=== PATIENT | male | born 1970 | race Caucasian/White ===

== ENCOUNTER 2019-03-06 18:26 | Inpatient (IN) | payer SELFPAY ==
[~2019-03-06 18:26] MED LIST: Iopamidol-370 76% 500 ML 1 ML ONE
[2019-03-06] MEDS ORDERED: Morphine 4 MG/ML VIAL ONE ×2 (18:55→19:47)
[2019-03-06] MEDS ORDERED: Ondansetron PF 4 MG/2 ML Vial ONE ×2 (18:56→19:22)
[2019-03-06] MEDS ORDERED: Clindamycin/D5W 900 mg/50 ml Premix Bag ONE (18:56)
[2019-03-06 19:08] LABS: Hemoglobin 10.9 g/dL (14.0-18.0); Mean Corpuscular HGB CONC 31.2 g/dL (32.0-36.0); Mean Corpuscular Hemoglobin 25.7 pg (27.0-31.0); Mean Corpuscular Volume 82.5 fL (78.0-98.0); Mean Platelet Volume 6.8 fL (7.4-10.4); Platelet Count 514 thou/uL (130-400); RBC Distribution Width 14.8 % (11.5-14.5); Red Blood Cell (RBC) Count 4.26 mill/uL (4.70-6.10); White Blood Cell (WBC) Count 12.6 thou/uL (4.8-10.8)
[2019-03-06 19:22] LABS: Bilirubin Negative (Negative); Blood, Urine Negative (Negative); Clarity Clear (Clear); Glucose, Urine (Dipstick) Normal (Negative); Leukocyte Negative Leu/uL (Negative); Nitrite Negative (Negative); Protein, Urine (Dipstick) Negative (Neg-Trace); Urobilinogen Normal mg/dL (Less than 2)
[2019-03-06 19:28] LABS: Eosinophils 1 % (0-10); Hypochromia SLIGHT = 6-15 cells (100X) (0-5/hpf); Lymphocytes 12 % (21-51); MDiff Complete? YES; Monocytes 4 % (0-10); Neutrophil 77 % (42-75); Platelet Morphology Comment Appears Increased; Polychromasia SLIGHT = 2-3 cells (100X) (0-2/hpf); Reactive Lymphocytes 6 % (0-10); Target Cells SLIGHT = 2-5 cells (100X) (0-1/hpf)
[2019-03-06 19:33] LABS: ALT (SGPT) 8 U/L (8-55); AST (SGOT) 11 U/L (5-34); Albumin 3.6 g/dL (3.5-5.0); Alkaline Phosphatase 70 U/L (40-110); Anion Gap 14 mmol/L (10-20); BUN (Urea Nitrogen) 10 mg/dL (8.9-20.6); Bilirubin, Total 0.3 mg/dL (0.2-1.2); Calc. Creatinine Clearance 0 mL/min (70-130); Calcium 9.1 mg/dL (7.8-10.44); Carbon Dioxide 28 mmol/L (22-29); Chloride 101 mmol/L (98-107); Estimated GFR-MDRD Greater than 90; Globulin 3.6 g/dL (2.4-3.5); Glucose 97 mg/dL (70-105); Potassium 3.8 mmol/L (3.5-5.1); Protein, Total 7.2 g/dL (6.0-8.3); Sodium 139 mmol/L (136-145)
--- NOTE | 2019-03-06 20:33 | CT ---
CT OF RIGHT LEG WITH IV CONTRAST: 03/06/19 HISTORY: 48-year-old male with right leg pain. Patient reports removal of three blood clots and stent placemen t in [place] and removal of patches of skin. Patient represents for evaluation of drainage from woun d to the right ankle. FINDINGS/IMPRESSION: There is soft tissue swelling in the right leg with edema in the subcutaneous fat. An open skin wound /defect is noted in the inferior aspect of the leg. No definite loculated fluid collection is seen to suggest abscess formation. There is periosteal reaction involving the mid-distal aspect of the fibul a. Possibility of osteomyelitis should be considered. POS: OFF
--- NOTE | 2019-03-06 21:18 | PDOC.FPRHP ---
- History of Present Illness Chief Complaint: RLE pain, nausea History of Present Illness: Mr. Goodson is a 48yo male who presented to the ED for worsening RLE pain. 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 He is a poor historian and was very agitated during the encounter. From what was gathered, the wound has been present since May 2018. It has significantly worsened in the last 1.5 months, to the point that today he began having significant increasing pain, and tonight he couldn't take it anymore. He is still walking on the leg. He has had associated nausea, sweats and chills. He has had orthopnea and PND, he wakes at night and smokes to relieve his symptoms. He states that this problem began in February of 2018 with 3 blood clots in that leg that were surgically removed and a stent was placed. He states that he had a post-operative infection at that time and some skin was removed. That was done in [place], [place]. ED Course: 1L NS, Zofran 8mg, Morphine 16mg, Vanc and Meropenem - Allergies/Adverse Reactions Allergies Allergy/AdvReac Type Severity Reaction Status Date / Time Penicillins Allergy Verified 03/06/19 23:32 - Home Medications Medication Instructions Recorded Confirmed Type Carvedilol [Coreg] 25 mg PO BID 03/06/19 03/06/19 History Chlorthalidone [Hygroton] 25 mg PO DAILY 03/06/19 03/06/19 History - History PMHx: Peripheral vascular disease HTN PSHx: 02/2018 - removed 3 blood clots and placed stent. Complicated by post-op infection. 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 Smokes 1 ppd Drinks 2/day No illicit drugs - Review of Systems General: reports: fever/chills. denies: weight/appetite/sleep changes, night sweats, fatigue Eyes: denies: eye pain, vision changes ENT: denies: nasal congestion, rhinorrhea Respiratory: denies: cough, congestion, shortness of breath Cardiovascular: denies: chest pain, palpitation, edema, paroxysmal nocturnal dyspnea Gastrointestinal: reports: nausea, vomiting. denies: diarrhea, constipation, abdominal pain Genitourinary: denies: incontinence, dysuria, polyuria Skin: reports: lesions. denies: rashes, jaundice Musculoskeletal: reports: pain, tenderness. denies: stiffness, swelling Neurological: denies: numbness, seizure, weakness Psychological: denies: anxiety, depression - Vital signs BP: 186/109, MAP: 134, Pulse: 102, Resp: 15, Temp: 99.2 (Oral), Pain: 6, O2 sat : 96 on (3L Oxygen), Time: 03/06/2019 21:12. Weight 97kg - Physical Exam Constitutional: NAD, awake, alert and oriented HEENT: normocephalic and atraumatic, PERRLA, EOMI, conjunctiva clear, grossly normal vision, grossly normal hearing, MMM Neck: supple, trachea midline Heart: RRR, normal S1/S2, no murmurs/rubs/gallops -Heart: Tachycardic Lungs: no respiratory distress, good air movement, no wheezing -Lungs: Rales on the left side Abdomen: soft, non-tender, bowel sounds present Musculoskeletal: normal structure, normal tone Neurological: no focal deficit, CN II-XII intact Skin: capillary refill <2 seconds -Skin: Significant RLE gangrenous wound on the lateral surface of the calf. LLE also has small ulcerated wound. Psychiatric: intact recent and remote memory -Psychiatric: Agitated mood and affect, poor insight. FMR H&P: Results - Labs Result Diagrams: 03/06/19 18:52 03/06/19 18:52 Lab results: WBC 12.6 thou/uL (4.8-10.8) H 03/06/19 18:52 Hgb 10.9 g/dL (14.0-18.0) L 03/06/19 18:52 Hct 35.1 % (42.0-52.0) L 03/06/19 18:52 MCV 82.5 fL (78.0-98.0) 03/06/19 18:52 Plt Count 514 thou/uL (130-400) H 03/06/19 18:52 Sodium 139 mmol/L (136-145) 03/06/19 18:52 Potassium 3.8 mmol/L (3.5-5.1) 03/06/19 18:52 Chloride 101 mmol/L (98-107) 03/06/19 18:52 Carbon Dioxide 28 mmol/L (22-29) 03/06/19 18:52 BUN 10 mg/dL (8.9-20.6) 03/06/19 18:52 Creatinine 0.68 mg/dL (0.7-1.3) L 03/06/19 18:52 Glucose 97 mg/dL (70-105) 03/06/19 18:52 Lactic Acid 1.1 mmol/L (0.5-2.2) 03/06/19 18:52 Calcium 9.1 mg/dL (7.8-10.44) 03/06/19 18:52 Total Bilirubin 0.3 mg/dL (0.2-1.2) 03/06/19 18:52 AST 11 U/L (5-34) 03/06/19 18:52 ALT 8 U/L (8-55) 03/06/19 18:52 Alkaline Phosphatase 70 U/L (40-110) 03/06/19 18:52 Serum Total Protein 7.2 g/dL (6.0-8.3) 03/06/19 18:52 Albumin 3.6 g/dL (3.5-5.0) 03/06/19 18:52 Urine Ketones Negative mg/dL (Negative) 03/06/19 18:50 Urine Blood Negative (Negative) 03/06/19 18:50 Urine Nitrite Negative (Negative) 03/06/19 18:50 Ur Leukocyte Esterase Negative Nicole/uL (Negative) 03/06/19 18:50 - Radiology Interpretation Other Status: report reviewed by me (CT LEG: There is soft tissue swelling in the right leg with edema in the subcutaneous fat. An open skin wound/defect is noted in the inferior aspect of the leg. No definite loculated fluid collection is seen to suggest abscess formation. There is periosteal reaction involving the mid-distal aspect of the fibula. Possibility of osteomyelitis should be considered) FMR H&P: A/P - Problem List (1) Sepsis due to skin infection Current Visit: No Status: Acute Code(s): L03.90 - CELLULITIS, UNSPECIFIED; A41.9 - SEPSIS, UNSPECIFIED ORGANISM (2) Gangrene of lower extremity Current Visit: No Status: Acute Code(s): I96 - GANGRENE, NOT ELSEWHERE CLASSIFIED (3) Hypertension Current Visit: No Status: Acute Code(s): I10 - ESSENTIAL (PRIMARY) HYPERTENSION - Plan Sepsis 2/2 skin infection, gangrenous right lower extremity - lactic acid 1.1, CRP 12.59 - Met sepsis criteria with WBC of 12.6 and tachycardia and known source of infection. - Will start Vancomycin and Meropenem for coverage of MRSA and other common skin pathogens. - Bolus additional liter of fluids, then maintain at 125mL/hour - Consulted General Surgery, Dr. Flores, for evaluation of debridement - CT scan showed no evidence of necrotizing fasciitis, however possible osteomyelitis. - Blood and wound cultures taken - Morphine and Toradol IV for pain management HTN - Increase home dose of lisinopril to 40mg daily. - PRN hydralazine for SBP > 180. 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 The patient states the wound started around Feb 2018. The patient had a stent surgery in [place] in May 2018 they told me they put a stent in and removed three blood clots. The patient states the pain has been getting progressively worse over the last 6 weeks or so. He states he has subjective fevers. He is able to walk on the leg. He is a ppd smoker for 30 years but denies diabetes. His other PMH includes HTN but he denies any other chronic medical issues. REVIEW OF SYSTEMS: Gen: subjective fever, no chills/sweats Neuro: denies headache Eyes: no visual changes ENT: no hearing changes, no sore throat, no congestion Resp: denies cough, SOB Card: denies murmurs, rubs, gallups GI: no N/V/D, no abdominal pain Heme: no easy bruising/bleeding, no blood thinners Skin: see hpi PHYSICAL EXAMINATION: General: NAD, alert and oriented x3 HEENT: PERRLA, EOMI, normal sclera, oropharynx without erythema or exudate Neck: Supple. Full ROM. Heart/Cardiovascular System: RRR, Cap refill < 3 seconds, no rub, no murmur Lungs/Respiratory System: Mild rales on L side, no resp distress Abdomen/Gastro-Intestinal System: no abdominal tenderness, normal bowel sounds Extremities: Warm extremities. See photos, wound on RLE from lateral malleolus to just below the lateral knee, graying of toes, pulses dimished but palpable, L foot with dime sized wound on superior aspect, pulses intact on LLE Neuro: No gross deficits appreciated. CN 2-12 grossly intact Psychiatry: Awake, Alert and cooperative with exam Musculoskeletal: Full ROM A/P: # Presumed osteomyelitis 2/2 chronic wound - No gas noted on CT, Periosteal reaction involving bone, cannot r/o osteomyelitis - LRINEC score 2, CR 12.5, 2/2 duration of wound nec fasc unlikely, gen surg consulted and will see patient tonight - Vanc, meropenem - Blood culture, wound culture taken - Morphine, toradol for pain control # SIRS 2/2 above - 2L NS bolus, pulse 100, WBC 12.6, lactic 1.1 # HTN urgency - No end organ damage, asymptomatic - Increased Lisinopril to 40mg, added hydralazine PRN # Thrombocytosis, reactive - trend Fluids: NS 125ml/hr Code status: full PPx: SCD, add pharmacologic after surgery Dispo: inpatinet Addendum - Attending - Attending Attestation Date/Time: 03/07/19 8945 I personally evaluated the patient and discussed the management with Dr. Live/ Bry. I agree with the History, Examination, Assessment and Plan documented above with any addition or exceptions noted below. Patient with apparent history of tobacco abuse, uncontrolled HTN, and supposed vascular disease presents with chronic non healing wound. Patient reports worsening pain in the R leg, lateral. There has been a wound there since at least 9 months ago. He does not take medications and does not follow up in the outpatient setting. He apparently has had significant clot burden and a stent placed in one of his leg vessels in [place], [place], and possible clearing/ revision at [facility] earlier this year. Patient exam significant for severe gangrene and putrifaction of the lateral R lower extremity. Foul smelling. The ulcer is nonstagable, and it appears it may involve his bone. CT scan also shows concern for extension into his bones. There is no gas formation and no major surrounding erythema. Labs show elevation of WBC and ESR/CRP but otherwise no major abnormalities. Patient will be admitted for ischemic extremity and gangrene. Broad spectrum abx. Surgery consulted and anticipate extensive debridement with eventual amputation. Wound care. Cultures. Control comorbid conditions. MD Sanjuana
[2019-03-06] MEDS ORDERED: Morphine 4 MG/ML VIAL SLOW IVP PRN (22:16)
[2019-03-06] MEDS ORDERED: Sodium Chloride 0.9% 1,000 ML IV SCH ×2 (22:30→23:00)
[2019-03-06 22:58] VITALS: BMI 33.8
[2019-03-06] MEDS ORDERED: MEROPENEM 1 GM/50 ML 1 GM in Premix Bag 1 BAG IVPB SCH (23:00)
--- NOTE | 2019-03-06 23:10 | RAD ---
XR Chest 1 View Portable HISTORY: Dyspnea COMPARISON: None FINDINGS: The heart size is borderline. The lungs are well expanded without focal areas of consolidat ion, pneumothorax or pleural effusions. There is no evidence of daisy pulmonary edema. IMPRESSION: No radiographic evidence of acute cardiopulmonary process.
[2019-03-06] MEDS ORDERED: Fentanyl 100 MCG/2 ML VIAL ONE (23:14)
[2019-03-06] MEDS ORDERED: Midazolam HCl 2 mg/2 ml Vial ONE (23:17)
--- NOTE | 2019-03-06 23:30 | HP ---
CHIEF COMPLAINT: Necrotizing infection of right lower leg. HISTORY OF PRESENT ILLNESS: The patient is a 48-year-old white male. 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 [facility] complaining of exacerbation of pain in his right lower leg. He has had progressive wounds involving his right lower leg over the course of the past several months. Apparently in November of this year, he was at the [facility] in [place], at which point he was found to have a rethrombosed stent in his right leg (I am not certain which vessel) that was apparently reopened at that time. He is vague about what treatment was done for his leg. He tells me that it has had a foul odor for about the last month. 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 He does not have a primary care physician. He presented to the hospital this evening only because the pain got bad enough that he could not tolerate it anymore. PAST MEDICAL HISTORY: Significant for hypertension. He is supposed to be taking a blood pressure medication, the name of which he does not know. He tells me he usually gets his prescriptions from the emergency room when he goes. He is occasionally on antibiotics for his leg as well, but he is not currently on any antibiotics. PAST SURGICAL HISTORY: Circumcision as a child and had a stent placement into one of the vessels in his right leg in [place], [place], in February 2018. ALLERGIES: TO PENICILLIN. PERSONAL AND SOCIAL HISTORY: He smokes 2 packs per day. 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 He drinks an estimated 6 to 7 shots per day of whiskey. He is with 7 children, one of whom is . His fiancee, who lives locally, is in the room with him. REVIEW OF SYSTEMS: Otherwise unremarkable. He apparently has an abnormal gait because of the problems with his leg. FAMILY HISTORY: Noncontributory. PHYSICAL EXAMINATION: VITAL SIGNS: He is afebrile. He is hypertensive currently with a blood pressure of 190/100, pulse is within normal limits. GENERAL: He is 5 feet 7 inches tall, weighs 216 pounds, is a well-developed, well-nourished white male, in mild intermittent distress. He complains of being thirsty and having pain and/or itching in his leg. There is a dense foul smell present within the room and frankly outside of his room as well related to his legs. HEAD, EYES, EARS, NOSE, AND THROAT: Unremarkable. NECK: Supple. LUNGS: Wheezes bilaterally. CARDIAC: Regular rate and rhythm. ABDOMEN: Obese, but soft and nontender. EXTREMITIES: He has palpable right femoral pulse. I am not able to palpate a right femoral pulse. On his left leg, he has darkening of the sole of his foot. There is no ulceration. I am not certain if it is just dirty or if there is some sort of cutaneous infection/discoloration. He does have dopplerable pulses at both dorsalis pedis and posterior tibial artery of the left foot. On the right foot, there are no dopplerable signals at the dorsalis pedis or posterior tibial. There is some mottling with the foot. It is not frankly cold to the touch. He does have ability to move his toes, but it is limited. He has an impressive area of , necrotic, foul-smelling tissue extending from a third of the way down his lower leg wrapping almost circumferentially around the leg, but being most prominent on the lateral aspect and extending down to the ankle. It is circumferential down closer to the ankle, but not circumferential up higher. Attempts to manipulate this are met with discomfort. As mentioned, this is clearly wet gangrenous tissue with a foul smell. LABORATORY DATA: White blood cell count elevated at 12.6, hemoglobin is 10.9, he has mild microcytic indices. Platelet count is slightly elevated at 514. Chemistries show normal electrolytes. Glucose is normal at 97. Lactate is normal at 1.1. C-reactive protein is elevated at 12.5. Albumin is normal at 3.6. Chest x-ray, portable chest x-ray was obtained and shows no evidence of disease. ASSESSMENT: The patient with suspected severe ischemic disease of his right lower leg. He is extraordinarily noncompliant and does not appropriately manage his blood pressure and continues to engage in tobacco abuse in spite of the recommendations of multiple physicians. There is extensive soft-tissue disease. There is no dopplerable pulse in his foot. For this evening, I will aggressively debride the necrotic foul-smelling tissue down to viable tissue and then initiate wound care. He has already been started on broad-spectrum antibiotics by his admitting physicians (family practice). Tomorrow, Vascular Surgery will be consulted in regard to further evaluation of the vascular status of his leg. The patient was informed of the distinct possibility that he will require an amputation. At the very least, this will take an extensive amount of time to heal and likely require skin grafting assuming viability could be established. The patient is already asking for an estimate of how long he will have to be in the hospital to manage this and I expressed the uncertainty regarding his outcome much less how long it will take to get there. Job ID: [id number] MTDD
[2019-03-06] MEDS: Sodium Chloride 0.9% 1,000 ML IV SCH (23:38)
[2019-03-06] MEDS: Lisinopril 20 MG TAB PO SCH (23:38)
[2019-03-06] MEDS: Nicotine 14 MG PATCH TD SCH (23:38)
[2019-03-06] MEDS: MEROPENEM 1 GM/50 ML 1 GM in Premix Bag 1 BAG IVPB SCH (23:38)
[2019-03-06] MEDS ORDERED: Vancomycin 1.5 GRAM/300 ML BAG 1.5 GM in Premix Bag 1 BAG IVPB SCH (23:59)
[2019-03-07] MEDS ORDERED: hydrALAZINE 20 MG/ML VIAL ONE (00:23)
[2019-03-07] MEDS ORDERED: Promethazine HCl 25 MG/ML VIAL SLOW IVP PRN (00:27)
[2019-03-07] MEDS ORDERED: Promethazine HCl 25 MG/ML VIAL IM PRN (00:27)
[2019-03-07] MEDS ORDERED: Ondansetron HCl/PF 4 MG/2 ML Vial IVP PRN (00:27)
[2019-03-07] MEDS ORDERED: PACU-Morphine 4MG/ML VIAL SLOW IVP PRN (00:27)
[2019-03-07] MEDS ORDERED: Morphine Sulfate 2 MG/ML SYRINGE SLOW IVP PRN (00:27)
[2019-03-07] MEDS ORDERED: Labetalol HCl 100 MG/20 ML VIAL ONE (00:31)
[2019-03-07] MEDS ORDERED: Esmolol 100 MG/10 ML VIAL ONE ×2 (00:32→10:16)
--- NOTE | 2019-03-07 01:25 | PDOC.BPN ---
- Brief Progress Note Patient was taken down to OR for debridement. While in the OR anesthesia noted he had significant airway obstruction and after the procedure was not maintaining his airway well. They recommended the patient be placed in CCU overnight until further surgical recommendations are made for closer monitoring and respiratory support. Plan for use of BiPap/CPAP overnight. Awaiting gen surg / CV surg recommendations in the morning.
[2019-03-07] MEDS: Vancomycin 1.5 GRAM/300 ML BAG 1.5 GM in Premix Bag 1 BAG IVPB SCH ×3 (02:02→17:44)
[2019-03-07] MEDS: Acetaminophen 325 MG TAB PO PRN ×3 (02:04→17:54)
[2019-03-07] MEDS: Ondansetron ODT 4 MG TAB PO PRN ×2 (02:04→18:28)
[2019-03-07] MEDS: Ketorolac Tromethamine 30 MG/ML VIAL IVP PRN ×3 (02:05→17:54)
[2019-03-07] MEDS: Nicotine 14 MG PATCH TD SCH ×2 (02:23→21:45)
[2019-03-07] MEDS: Lisinopril 20 MG TAB PO SCH ×2 (02:24→07:36)
[2019-03-07] MEDS: Morphine 4 MG/ML VIAL SLOW IVP PRN ×5 (03:02→19:59)
[2019-03-07 04:01] LABS: #Neutrophils 10.6 thou/uL (1.40-6.50); %Eosinophils 0.2 % (0.0-10.0); %Lymphocytes 7.6 % (21.0-51.0); %Monocytes 7.5 % (0.0-10.0); %Neutrophils 84.7 % (42.0-75.0); Hemoglobin 9.5 g/dL (14.0-18.0); Mean Corpuscular HGB CONC 31.3 g/dL (32.0-36.0); Mean Corpuscular Hemoglobin 26.2 pg (27.0-31.0); Mean Corpuscular Volume 83.7 fL (78.0-98.0); Mean Platelet Volume 6.5 fL (7.4-10.4); Platelet Count 426 thou/uL (130-400); RBC Distribution Width 14.9 % (11.5-14.5); Red Blood Cell (RBC) Count 3.63 mill/uL (4.70-6.10); White Blood Cell (WBC) Count 12.6 thou/uL (4.8-10.8)
[2019-03-07 04:04] LABS: Hemoglobin A1c 5.4 % (4.0-6.0)
--- NOTE | 2019-03-07 04:12 | PDOC.BPN ---
- Brief Progress Note Called for patient accusing nurse of not giving pain medications, then stating he remembers her giving meds Mild diaphoresis noted, tachycardic in 110s, no urine output since arriving to ICU from OR Will bolus 1L NS, add thiamine/folate, ASE protocol
[2019-03-07 04:13] LABS: Anion Gap 8 mmol/L (10-20); BUN (Urea Nitrogen) 11 mg/dL (8.9-20.6); Calc. Creatinine Clearance 178 mL/min (70-130); Calcium 8.5 mg/dL (7.8-10.44); Carbon Dioxide 27 mmol/L (22-29); Chloride 105 mmol/L (98-107); Estimated GFR-MDRD Greater than 90; Glucose 95 mg/dL (70-105); Potassium 4.3 mmol/L (3.5-5.1); Sodium 136 mmol/L (136-145)
[2019-03-07] MEDS ORDERED: Sodium Chloride 0.9% 1,000 ML IV SCH (04:15)
[2019-03-07] MEDS ORDERED: Diazepam 5 MG TAB PO SCH (04:30)
[2019-03-07] MEDS ORDERED: Thiamine HCl 200 MG/2 ML VIAL IM SCH (04:30)
[2019-03-07] MEDS: MEROPENEM 1 GM/50 ML 1 GM in Premix Bag 1 BAG IVPB SCH ×3 (06:42→21:03)
[2019-03-07] MEDS: Sodium Chloride 0.9% 1,000 ML IV SCH ×3 (06:43→23:04)
[2019-03-07] MEDS: Multivitamin W/ Minerals 1 TAB PO SCH (07:36)
[2019-03-07] MEDS: Folic Acid 1 MG TAB PO SCH (07:36)
[2019-03-07] MEDS: Thiamine 100 MG TAB PO SCH (07:36)
--- NOTE | 2019-03-07 07:36 | PDOC.FM ---
- Subjective Subjective: Went down for debridement, doing well this morning aside from some pain but just got some morphine No other complaints or concerns at this time - Objective MAR Reviewed: Yes Vital Signs & Weight: Vital Signs (12 hours) Temp Pulse Resp BP BP Pulse Ox 03/07/19 06:00 100.5 F H 03/07/19 04:00 101.1 F H 26 H 03/07/19 02:40 88 L 03/07/19 02:24 178/114 H 03/07/19 02:22 109 H 15 98 03/07/19 01:30 99.1 F 03/06/19 23:08 109 H 22 H 100 03/06/19 22:15 99.0 F 103 H 16 183/104 H 100 Weight Weight 100.9 g Most Recent Monitor Data Heart Rate from ECG 106 NIBP 165/91 NIBP BP-Mean 115 Respiration from ECG 14 SpO2 99 I&O: 03/06/19 03/07/19 03/08/19 06:59 06:59 06:59 Intake Total 1960 Output Total 25 Balance 1934 Result Diagrams: 03/07/19 03:40 03/07/19 03:40 Phys Exam - Physical Examination Constitutional: NAD Respiratory: no wheezing, clear to auscultation bilateral Cardiovascular: RRR, no significant murmur Gastrointestinal: soft, non-tender no pulses in right lower erxtremity, extensive skin infection Neurological: non-focal Psychiatric: A&O x 3 Dx/Plan (1) Tobacco abuse Code(s): Z72.0 - TOBACCO USE Status: Acute (2) Alcohol abuse Code(s): F10.10 - ALCOHOL ABUSE, UNCOMPLICATED Status: Acute (3) Gangrene of lower extremity Code(s): I96 - GANGRENE, NOT ELSEWHERE CLASSIFIED Status: Acute (4) Hypertension Code(s): I10 - ESSENTIAL (PRIMARY) HYPERTENSION Status: Acute (5) Sepsis due to skin infection Code(s): L03.90 - CELLULITIS, UNSPECIFIED; A41.9 - SEPSIS, UNSPECIFIED ORGANISM Status: Acute (6) History of DVT (deep vein thrombosis) Code(s): Z86.718 - PERSONAL HISTORY OF OTHER VENOUS THROMBOSIS AND EMBOLISM Status: Acute (7) PVD (peripheral vascular disease) Code(s): I73.9 - PERIPHERAL VASCULAR DISEASE, UNSPECIFIED Status: Acute - Plan Plan: #. Ischemic right lower extremity with necrotic skin changes -S/P debridement on 03/[address] Flores -Nec fasc. not likely -Plan for amputation with CV surg, NPO for now -Wound care on board #. Sepsis 2/2 above -Improving, not requiring vaspressor support -Continue vanc & meropenem -Pending blood and wound cultures #. Anemia -Hb 10.9 -> 9.5 -Likely ACD and dilutional -Trend -Iron studies #. PVD #. Tobacco abuse -Counseled on cessation #. Alcohol abuse -ASE protocol dvt ppx: Lovenox Dispo: > 2 midnights PCP: none Discussed with Dr. Hong Addendum - Attending - Attending Attestation Date/Time: 03/07/19 1131 I personally evaluated the patient and discussed the management with Dr. Acuña. I agree with the History, Examination, Assessment and Plan documented above with any addition or exceptions noted below. See addendum from H/P for today's attending addendum.
[2019-03-07] MEDS ORDERED: Enoxaparin Sodium 40 MG/0.4 ML SYRINGE SC SCH (09:00)
--- NOTE | 2019-03-07 09:52 | ULT ---
THYROID ULTRASOUND INDICATION: Neck enlargement TECHNIQUE: Grayscale and color Doppler images were obtained of the thyroid gland. COMPARISON: None FINDINGS: Right thyroid lobe: The right thyroid lobe measures 3.3 x 2.3 x 1.6 cm. Thyroid isthmus: The thyroid isthmus measures 0.58 cm. Left thyroid lobe: The left thyroid lobe measures 1.6 x 3.8 x 2.0 cm. IMPRESSION: 1. No focal thyroid lesion demonstrated.
[2019-03-07] MEDS ORDERED: PHENYLEPHRINE-NS 100 MCG/ML 10 ML SYRINGE ONE (10:16)
[2019-03-07] MEDS ORDERED: PROPOFOL 200 MG/20 ML VIAL ONE (10:16)
[2019-03-07] MEDS ORDERED: Ketorolac Tromethamine 30 MG/ML VIAL ONE (10:16)
[2019-03-07] MEDS ORDERED: Glycopyrrolate 0.2 MG/ML 5 ML SYRINGE ONE (10:16)
[2019-03-07] MEDS ORDERED: Rocuronium Bromide 10 MG/ML (10ML VIAL) ONE (10:16)
[2019-03-07] MEDS ORDERED: Lidocaine 1% PF 5 ML VIAL ONE (10:16)
[2019-03-07] MEDS ORDERED: Ondansetron PF 4 MG/2 ML Vial ONE (10:16)
[2019-03-07] MEDS ORDERED: Iopamidol 370 76% 100 ML VIAL ONE (11:47)
[2019-03-07 13:26] LABS: Free T4 (Free Thyroxine) 0.88 ng/dL (0.70-1.48); Thyroid Stimulating Hormone 0.927 uIU/mL (0.35-4.94)
[2019-03-07] MEDS: Diazepam 5 MG TAB PO PRN (14:27)
--- NOTE | 2019-03-07 15:01 | PRG ---
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 He is awake and alert in the ICU. He reports this large painful ulcer has been present and worsening over the last 1 year. It apparently started about a size of a silver dollar and had progressively worsened to include distal 2/3 of the right lower extremity near circumferential. Despite debridement procedures earlier today, the wound remains foul smelling. The patient reports better pain control. He denies any fevers or chills. OBJECTIVE: VITAL SIGNS: Today include blood pressure 165/79, pulse is 109, respiratory rate is 18, temperature is 100.4 degrees Fahrenheit, maximum temperature since admission is 101.1 degrees Fahrenheit, oxygen saturation is 100% on 2 L by nasal cannula oxygen. HEENT: Pupils equal, round, reactive to light and accommodation. He has palpable bilateral and movable soft tissue masses. The masses are slightly tender to palpation according to the patient. Trachea, however, appears midline. HEART: Reveals regular rate with sinus tachycardia. No murmurs or gallops auscultated. LUNGS: Reveals scattered rhonchi. Breathing, regular and nonlabored. ABDOMEN: Soft, nontender, nondistended. EXTREMITIES: The right lower extremity is examined. There is residual foul smelling ulceration, proximal 2/3 of the right lower extremity, mostly laterally near circumferential about the ankle. Right pedal pulses are nonpalpable. Right foot, however, is slightly warm to touch. The patient has superficial ulcerations of the plantar surface of the left foot. The left forefoot has significant erythema in the dorsum aspect with central blister present. NEUROLOGIC: Reveals no focal deficits present. LABORATORY FINDINGS: Today include a CBC with 12,600 white blood cells, hemoglobin and hematocrit 9.5 and 30.4 respectively. The platelet count is 426,000. Metabolic profile; sodium 136, potassium 4.3, chloride is 105, bicarb is 27, BUN 11, creatinine 0.72, glucose is 95. IMPRESSIONS: Chronic right lower extremity ulcer, likely ischemic versus neoplastic. PLAN: 1. The patient will be returned to the operating room tomorrow for second-look and possibly additional debridement and biopsy. 2. We will ask Plastic Surgery to evaluate the patient along with me tomorrow. Above findings and plan discussed with the patient and his significant other at bedside. They both indicated understanding of information given. I have answered their questions. Job ID: [id number]
--- NOTE | 2019-03-07 15:31 | CON ---
DATE OF CONSULTATION: 03/07/2019 REQUESTING PHYSICIAN: Dr. Flores. CHIEF COMPLAINT: Pain associated with chronic right leg wound. HISTORY OF PRESENT ILLNESS: The patient is a 48-year-old diabetic man, who appears to be notoriously noncompliant. 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 He apparently had what appears to be popliteal stenting on the right side about a year ago in [place], [place]. Going through the [facility] system, I see multiple evaluations at [facility] going back over a few years including multiple ones over the last few months, although admittedly it is a little bit difficult for me to tell how many of these were local and how many of these were at other [facility] facilities. He has had a long-standing wound associated with his right lower leg and apparently the pain of it simply got bad enough he decided to come to the hospital. Unlike most of his more recent presentations, he agreed to stay for medical care, which included urgent debridement of what appeared to represent a necrotizing wound involving much of the anterolateral aspect of his right lower leg. The patient keeps falling asleep and snoring during the interview and exam and is not able to provide very many details at this time. PAST MEDICAL HISTORY: Significant for hypertension. MEDICATIONS: Listed as Coreg and [place]. ALLERGIES: TO PENICILLINS. SOCIAL HISTORY: He continues to smoke. REVIEW OF SYSTEMS: Negative for any fever or chills. He reports numbness in both feet. PHYSICAL EXAMINATION: VITAL SIGNS: His T-max has been 101.1 since arrival in the ICU, it was 99.2 in the emergency room, heart rate 94, blood pressure 126/78, O2 saturations have ranged from 88% to 100% on nasal cannula oxygen. He is not able to open his mouth wide enough or lift his tongue up high enough for me to see much of his oropharynx. He has a generalized fullness in the submental region. On casual glance, it simply looks like a prominent double chin, but on palpation, it is firm and nontender and large enough that it interferes with trying to listen for carotid bruits. LUNGS: He has clear breath sounds. HEART: Regular rate and rhythm. ABDOMEN: Soft and nontender. EXTREMITIES: He has palpable femoral pulses with no associated bruits. He has chronic edema of both lower extremities and appears to have chronic venous stasis changes involving most of his right lower leg. He has quite large wound on the anterolateral aspect of the right lower leg and in looking at his preoperative CT scan, there is a considerable soft-tissue defect that speaks to a large open wound preoperatively, most of the exposed tissue appears to represent viable tissue. There is a combination of purplish discoloration from varicose veins and venous stasis pigmentation, but there is also some duskiness that is somewhat suggestive of ischemic disease. I was not able to identify a Doppler signal in the right foot. He has a fairly strong Doppler signal in the left dorsalis pedis and a weaker signal in the left posterior tibial. He has some eschar consistent with some dry gangrenous changes affecting toes on the left foot. LABORATORY DATA: Showed a white count of 12.6, hemoglobin 9.5, and MCV 83.7. Electrolytes were normal. BUN 10, creatinine 0.68, glucose 97, albumin is 3.6. UA was clean. His chest x-ray shows moderate cardiomegaly with very prominent pulmonary markings. CT scan of his lower extremity basically from knee down on the right side was done with IV contrast, but not as a formal angiogram. At the head of the fibula, there is a popliteal stent that goes down almost all the way to the takeoff of the anterior tibial, that stent is thrombosed. There is disease in the anterior tibial. The peroneal and posterior tibial appear to be rather small vessels and even the anterior tibial is not just especially big. There is a large soft tissue defect in the lower leg that on sagittal reconstructions can be seen affecting the lateral aspect of it and extending around anteriorly and posteriorly. The old records that I found from various [facility] facilities describe him as having a draining sinus tract from chronic osteomyelitis. Impressions and recommendations what I am able to see of the contrasted CT scan leads me to believe that while it may be possible to graft the anterior tibial, its after results in a procedure that leaves the graft and the anastomosis exposed. There is so much soft tissue and tissue loss that it is debatable whether the leg is salvageable. The foot looks dusky, but it is hard to tell how much of that is due to venous congestion, how much of it is dark due to arterial ischemia. He clearly appears to have some ischemic changes affecting his left foot, but he has some chronic edema over there as well. He has a very concerning finding of this firm fullness that I fear could represent cancer of the floor of the mouth. I think that putting it all together, this patient's right leg is probably not salvageable and heroic efforts to revascularize it in order to save it, at the risk of breakdown of his graft and anastomosis and that he would probably be best served with an above knee amputation. I would not pursue the left lower extremity at this point and would look into whatever this process in his head and neck is first as I am not particularly optimistic about his prospects for limb salvage on the left either. Job ID: [id number]
--- NOTE | 2019-03-07 16:17 | CT ---
CT NECK WITH CONTRAST: Date: 03/07/19 INDICATION: Question neck mass under chin. FINDINGS: Parotid glands appear normal and symmetric. Both submandibular glands are enlarged and are heterogeneous. Mild inflammatory stranding and edema i s seen around both submandibular glands. Thyroid appears unremarkable. Images of the nasopharynx show prominence of the pharyngeal tonsils. There is narrowing of the airway in the nasopharynx exacerbated by this tonsillar hypertrophy. Oropharynx shows prominence of the palatine tonsils, although both sides appear symmetric. The hypopharynx shows effacement of the left piriform sinus. Larynx unremarkable. Review of lymph node levels show bilateral submandibular/Level I lymph nodes which appear nonspecific and subcentimeter. Level II lymph nodes are mildly prominent. A right jugulodigastric Level II lymph node measures up to 1.8 cm. Bilateral IIA and IIB lymph nodes measure 1-1.5 cm. No evidence of Level III or adenopathy. There are nonspecific Level IV lymph nodes seen bilaterally in the supraclavicular region measuring u p to 1.0 cm. Nonspecific Level V lymph nodes are subcentimeter. Diffuse subcutaneous edema is seen in the subcutaneous tissues of the neck below the mandible bilater ally. This could represent cellulitis or edema. Wire Winder space unremarkable. The parapharyngeal space and retropharyngeal space are unremarkable. Carotid space shows atherosclerotic calcifications in the carotid bulbs bilaterally. Cervical spine appears unremarkable. There is evidence of prior surgery in the right maxillary sinus with mild mucosal thickening. Nasal septal deviation to the right. IMPRESSION: 1. Both submandibular glands appear enlarged and heterogeneous with surrounding inflammatory change and edema. 2. Subcutaneous edema in the neck bilaterally below the mandible. 3. Nonspecific cervical adenopathy most prominent at Level II. 4. There is lymphoid prominence with enlargement of the pharyngeal tonsils and palatine tonsils. The re is mild airway narrowing at the nasopharynx due to this tonsillar hypertrophy. 5. Effacement of the left piriform sinus which is nonspecific. Recommend direct evaluation to rule o ut mucosal lesion. ENT evaluation of the palatine and pharyngeal tonsils may also be performed at daisy e of the direct evaluation. 6. Incidentally noted and not mentioned above is patchy infiltrate in the visualized portions of the right lung apex. POS: OFF
--- NOTE | 2019-03-07 16:35 | CT ---
CTA ABDOMEN AND PELVIS AND LOWER EXTREMITIES: Date: 03/07/19 Exam is suboptimal due to inadequate arterial opacification. Technologist states that there was leaka ge from the IV and patient was unable to cooperate. INDICATION: Peripheral arterial disease. Right leg ulcer that is nonhealing. FINDINGS: The abdominal aorta is normal caliber. There are mid atherosclerotic changes in the abdominal aorta w ithout evidence of aneurysm or dissection. Aortic branches including celiac artery, superior mesenter ic artery, and renal arteries appear patent with no definite stenosis. Aortic bifurcation is patent. There is evidence of mild aneurysmal dilatation of the distal portion o f the left common iliac artery measuring up to 1.7 cm. This artery is suboptimally evaluated due to i nadequate arterial opacification. The lumen is patent without evidence of significant stenosis. LEFT LOWER EXTREMITY: The internal and external iliacs on the left are patent without arterial calcification of the interna l iliac. Atherosclerotic calcifications of the left common femoral without focal stenosis. Profunda is patent. Moderate stenosis at the origin of the left superficial femoral artery. Diffuse disease throughout the left superficial femoral artery with numerous areas of focal stenosis which appear to approach hemodynamic significance. There is significant stenosis distally at Murali's canal with severe stenosis and near occlusion. Diffuse disease in the popliteal with high grade stenosis at the knee joint. Popliteal does trifurcate below the knee and three vessels are seen proximally. The peroneal appears to occlude in the distal calf. RIGHT LOWER EXTREMITY: Right internal and external iliacs appear patent. Diffuse disease in the right common femoral with calcification and stenosis. There is a stent in the proximal right superficial femoral artery. This vessel appears to be occluded. The stent is seen thro ughout the right thigh with no flow identified. A right anterior tibial artery is identified below th e knee and is patent to the ankle. Posterior tibial and peroneal arteries appear occluded on the righ t. SOFT TISSUES: Patchy infiltrate is seen in the mid right lung on images through the lung bases and there is bibasil ar atelectasis and small right effusion. Liver, spleen, pancreas, and kidneys unremarkable. Bowel loops unremarkable. Huizar catheter is in jeramy ce with a contracted urinary bladder. Adrenal glands and kidneys appear unremarkable. IMPRESSION: 1. Suboptimal exam due to suboptimal arterial opacification. There is stenosis involving the left [place] perficial femoral artery as described. 2. There is evidence of occlusion to the right superficial femoral artery at its origin with a stent in the right superficial femoral artery which appears occluded. 3. Correlation with catheter angiogram may be of benefit for confirmation Of these findings. 4. There is evidence of patchy infiltrate in the right mid lung and bibasilar atelectasis as describ ed. POS: OFF
--- NOTE | 2019-03-07 17:21 | CON ---
DATE OF CONSULTATION: 03/07/2019 HISTORY OF PRESENT ILLNESS: Tomer Goodson is a 48-year-old male, who was admitted to Surgery service. I was consulted because of his presence in the ICU. When I arrived, we became immediately apparent that this gentleman has severe sleep apnea. He was placed back on BiPAP. He apparently went to the OR for debridement of leg wound, although there is no operative note available at this time. He has had a thyroid ultrasound that shows nothing. He has had an aortic angiogram by CT scanning, which shows left superficial femoral artery stenosis and occlusion of the right superficial femoral artery at its origin with a stent in the right superficial femoral artery, which is occluded. Infiltrate of the right lung base was seen. Soft tissue of his neck CT was done showing enlarged submandibular glands. PAST MEDICAL HISTORY: Remarkable for hypertension, DVT in the past, chronic lower extremity wounds, peripheral vascular disease with stenting as mentioned. FAMILY HISTORY: Positive for diabetes and hypertension. SOCIAL HISTORY: He smokes and drinks on a daily basis. REVIEW OF SYSTEMS: 10 point review of systems completed, not accurately obtainable. PHYSICAL EXAMINATION: GENERAL: Tomer Goodson is a 48-year-old male, who was admitted to Surgery service. VITAL SIGNS: Heart rate is 100, blood pressure 127/82, respiratory rate 18 to 21, oximetry is 94% to 96%. HEAD AND NECK: He has prominent submandibular glands on head and neck exam. He is quite obese. He has no cervical lymphadenopathy. LUNGS: Remarkable for coarse equal breath sounds. He is not wheezing. He does have a prolonged expiratory phase. HEART: Regular rhythm. ABDOMEN: Soft and nontender. EXTREMITIES: Bandaged. LABORATORY DATA: White count 12.6, hemoglobin 9.5, platelets 426. Electrolytes are normal. IMPRESSION: 1. Lower extremity infections, status post debridement, receiving wound care. 2. Probable underlying obstructive lung disease. 3. Probable underlying sleep apnea. Recommend continue with BiPAP when he is asleep. 4. History and daily alcohol use. 5. History of daily tobacco use. PLAN: I would recommend routine nebulizer treatments. Given his long expiratory phase, he probably would benefit from steroids, although acknowledges it will slow down wound healing. He needs to continue with BiPAP and antimicrobial therapy per Surgery. His prognosis is quite guarded. This is a 70 minute consult, with greater than 50% of time spent on unit coordinating care. Job ID: [id number] [email or web address]
[2019-03-07] MEDS: methylPREDNISolone Sod Succ 40 MG VIAL IVP SCH ×2 (17:44→23:04)
[2019-03-07] MEDS: Famotidine 20 MG TAB PO SCH (20:02)
[2019-03-08] MEDS: Ketorolac Tromethamine 30 MG/ML VIAL IVP PRN ×2 (00:56→23:12)
[2019-03-08] MEDS: Morphine 4 MG/ML VIAL SLOW IVP PRN ×8 (01:44→23:57)
[2019-03-08] MEDS: Diazepam 5 MG TAB PO PRN (02:04)
[2019-03-08 02:10] LABS: Vancomycin, Trough 17.7 ug/mL
[2019-03-08] MEDS: Vancomycin 1.5 GRAM/300 ML BAG 1.5 GM in Premix Bag 1 BAG IVPB SCH ×3 (02:15→17:34)
[2019-03-08] MEDS ORDERED: Diazepam 5 MG TAB PO PRN (04:00)
[2019-03-08 04:49] LABS: #Lymphocytes 0.7 thou/uL (1.20-3.40); #Monocytes 0.5 thou/uL (0.11-0.59); #Neutrophils 11.3 thou/uL (1.40-6.50); %Lymphocytes 5.9 % (21.0-51.0); %Monocytes 3.9 % (0.0-10.0); %Neutrophils 90.1 % (42.0-75.0); Hemoglobin 8.6 g/dL (14.0-18.0); Mean Corpuscular Hemoglobin 26.1 pg (27.0-31.0); Mean Corpuscular Volume 84.2 fL (78.0-98.0); Mean Platelet Volume 6.3 fL (7.4-10.4); Platelet Count 364 thou/uL (130-400); RBC Distribution Width 14.8 % (11.5-14.5); Red Blood Cell (RBC) Count 3.29 mill/uL (4.70-6.10); White Blood Cell (WBC) Count 12.5 thou/uL (4.8-10.8)
[2019-03-08] MEDS: MEROPENEM 1 GM/50 ML 1 GM in Premix Bag 1 BAG IVPB SCH ×3 (05:04→21:30)
[2019-03-08] MEDS: methylPREDNISolone Sod Succ 40 MG VIAL IVP SCH ×4 (05:04→23:56)
[2019-03-08 05:08] LABS: Anion Gap 10 mmol/L (10-20); BUN (Urea Nitrogen) 12 mg/dL (8.9-20.6); Calc. Creatinine Clearance 0 mL/min (70-130); Calcium 8.8 mg/dL (7.8-10.44); Carbon Dioxide 29 mmol/L (22-29); Chloride 102 mmol/L (98-107); Estimated GFR-MDRD Greater than 90; Glucose 139 mg/dL (70-105); Potassium 4.9 mmol/L (3.5-5.1); Sodium 136 mmol/L (136-145)
--- NOTE | 2019-03-08 06:55 | PDOC.FM ---
- Subjective Subjective: NAEO Comfortable Plan is to go to ER later today - Objective MAR Reviewed: Yes Vital Signs & Weight: Vital Signs (12 hours) Temp Pulse Resp Pulse Ox 03/08/19 06:44 97 03/08/19 06:41 95 15 99 03/08/19 03:00 99.6 F 03/08/19 02:25 97 20 98 03/08/19 00:00 99 03/07/19 23:00 99.2 F 03/07/19 22:07 86 15 100 03/07/19 19:45 98 03/07/19 19:00 99.8 F H Weight Weight 100.9 g Most Recent Monitor Data Heart Rate from ECG 88 NIBP 145/89 NIBP BP-Mean 107 Respiration from ECG 15 SpO2 97 I&O: 03/06/19 03/07/19 03/08/19 06:59 06:59 06:59 Intake Total 1960 4318 Output Total 25 4175 Balance 1935 143 Result Diagrams: 03/08/19 04:34 03/08/19 04:34 Phys Exam - Physical Examination Constitutional: NAD sublingual mass Neck: no nodes, full ROM dec lung sounds but not in respiratory distress Cardiovascular: RRR, no significant murmur Gastrointestinal: soft, non-tender dec sensation in the right lower foot Psychiatric: normal affect, A&O x 3 Dx/Plan (1) Tobacco abuse Code(s): Z72.0 - TOBACCO USE Status: Acute (2) Alcohol abuse Code(s): F10.10 - ALCOHOL ABUSE, UNCOMPLICATED Status: Acute (3) Gangrene of lower extremity Code(s): I96 - GANGRENE, NOT ELSEWHERE CLASSIFIED Status: Acute (4) Hypertension Code(s): I10 - ESSENTIAL (PRIMARY) HYPERTENSION Status: Acute (5) Sepsis due to skin infection Code(s): L03.90 - CELLULITIS, UNSPECIFIED; A41.9 - SEPSIS, UNSPECIFIED ORGANISM Status: Acute (6) History of DVT (deep vein thrombosis) Code(s): Z86.718 - PERSONAL HISTORY OF OTHER VENOUS THROMBOSIS AND EMBOLISM Status: Acute (7) PVD (peripheral vascular disease) Code(s): I73.9 - PERIPHERAL VASCULAR DISEASE, UNSPECIFIED Status: Acute - Plan Plan: #. Ischemic right lower extremity with necrotic skin changes -S/P debridement on 03/[address] Flores -Plan for OR today for possible assessment of salvaging vs. AKA -Left leg will eventually need left AKA per CV surg #. Sepsis 2/2 above -Improving, not requiring vaspressor support -Continue vanc & meropenem -Pending blood and wound cultures #. Anemia -Hb 10.9 -> 9.5 -Likely ACD and dilutional -Trend -Iron studies #. PVD #. Tobacco abuse -Counseled on cessation #. Alcohol abuse -ASE protocol dvt ppx: Lovenox Dispo: > 2 midnights PCP: none Discussed with Dr. Hong Addendum - Attending - Attending Attestation Date/Time: 03/08/19 4104 I personally evaluated the patient and discussed the management with Dr. wu. I agree with the History, Examination, Assessment and Plan documented above with any addition or exceptions noted below. Patient condition improved. He has some unspecified neck mass that will need workup at some point. He will be going to the OR today for more extensive debridement. CV surgery on board. Continue broad spectrum abx. Monitor for EtOH withdrawal. WBC stable. May need ENT for neck mass but this can likely be deferred to outpatient setting.
--- NOTE | 2019-03-08 08:00 | OP ---
DATE OF PROCEDURE: 03/06/2019 Date of operation 03/06/2019 (into 03/07/2019). COMMERCIAL LOAN REVIEWER: Elisha Cortez, medical student. ANESTHESIA: General endotracheal. INDICATIONS: The patient is a 48-year-old noncompliant, hypertensive, tobacco abusing white male with a history of peripheral vascular disease, who presents with a large open foul smelling ulcer involving the majority of the lateral aspect of his right leg and is semi-circumferential just above the ankle. He is taken to the operating room at this time for aggressive debridement of the infected devitalized tissue. He has no dopplerable pulses at his foot and no palpable pulse in his right groin. He is taken to the operating room at this time for aggressive debridement. DESCRIPTION OF PROCEDURE: Informed consent was obtained, the patient was taken to the operating room, where general endotracheal anesthesia was obtained with the patient in supine position. Right lower leg was prepped with Betadine and draped in sterile fashion. Using sharp dissection with a scalpel, I began to debride the devitalized foul smelling tissue. There was a dense eschar over most of the ulcer. Underlying this was a variety of tissue that was difficult to impossible to recognize. I could not discriminate devitalized fatty tissue from muscle. There were tendons that were encountered and sharply debrided. I encountered no bleeding within the actual wound itself, but I believe I removed most of the foul smelling necrotic tissue. There was a tiny amount of bleeding from the skin edges. By continued debriding for a little over a half hour, at which point, I scrubbed everything thoroughly with a brush and with peroxide. There was clearly still going to be further tissue to debride, but decided that further debridement to be performed in a staged fashion. The dimensions of the wound were approximately 23 cm in vertical length and between 12 and 15 cm in width at various points around the leg. As mentioned, it is almost circumferentially just above the ankle. There is no foot involvement at all. A Betadine and dry gauze dressing was applied. He will be returned to the medical floor, where intravenous antibiotics will be continued. I will obtain a Vascular Surgery consult tomorrow to evaluate his leg. He gives a history of a thrombosed stent in that leg (possibly an iliac stent) 3 months ago at another hospital in [facility]. I will also consult Wound Care to continue dressing changes on the leg. As mentioned, he will almost certainly require further debridement at some point and may end up requiring an amputation on this side. Job ID: [id number]
[2019-03-08] MEDS: Sodium Chloride 0.9% 1,000 ML IV SCH ×2 (08:32→14:22)
[2019-03-08] MEDS: Lisinopril 20 MG TAB PO SCH (08:32)
[2019-03-08] MEDS: Folic Acid 1 MG TAB PO SCH (08:32)
[2019-03-08] MEDS: Multivitamin W/ Minerals 1 TAB PO SCH (08:32)
[2019-03-08] MEDS: Thiamine 100 MG TAB PO SCH (08:33)
[2019-03-08] MEDS: Magnesium Oxide 400 MG TAB PO SCH (08:34)
[2019-03-08] MEDS: Famotidine 20 MG TAB PO SCH ×2 (08:34→20:42)
[2019-03-08] MEDS ORDERED: Fentanyl 100 MCG/2 ML VIAL ONE ×3 (09:30→11:13)
[2019-03-08] MEDS ORDERED: Ondansetron PF 4 MG/2 ML Vial ONE (10:27)
[2019-03-08] MEDS ORDERED: Succinylcholine Chloride 20 MG/ML 10 ml SYRINGE FS ONE (10:27)
[2019-03-08] MEDS ORDERED: Glycopyrrolate 0.2 MG/ML 5 ML SYRINGE ONE (10:27)
[2019-03-08] MEDS ORDERED: Rocuronium Bromide 10 MG/ML (10ML VIAL) ONE (10:27)
[2019-03-08] MEDS ORDERED: PROPOFOL 200 MG/20 ML VIAL ONE (10:27)
[2019-03-08] MEDS ORDERED: Lidocaine 1% PF 5 ML VIAL ONE (10:27)
[2019-03-08] MEDS ORDERED: Ondansetron HCl/PF 4 MG/2 ML Vial IVP PRN (10:58)
[2019-03-08] MEDS ORDERED: Promethazine HCl 25 MG/ML VIAL IM PRN (10:58)
[2019-03-08] MEDS ORDERED: Promethazine HCl 25 MG/ML VIAL SLOW IVP PRN (10:58)
[2019-03-08] MEDS ORDERED: Morphine 4 MG/ML VIAL SLOW IVP SCH (12:45)
--- NOTE | 2019-03-08 14:32 | PRG ---
DATE OF SERVICE: 03/08/2019 SUBJECTIVE: The patient seems to be doing reasonably well after debridement. He is having some pain issues. OBJECTIVE: VITAL SIGNS: Temperature is 98.4, pulse 99, blood pressure 140/70, O2 saturation 94%. HEENT: Unremarkable. NECK: No adenopathy or JVD. CHEST: Clear anteriorly. CARDIAC: S1, S2. Regular. ABDOMEN: Soft. EXTREMITIES: Wrapped in dressings. LABORATORY DATA: White blood cell count 12.5, hematocrit 27.6, and platelet count 364. Sodium 136, potassium 4.9, BUN 12, creatinine 0.7, glucose 139. ASSESSMENT: 1. Leg wounds, infected. 2. Chronic obstructive pulmonary disease. 3. Probable underlying obstructive sleep apnea. PLAN: Likely transfer to the floor when okay with Surgery. Continue BiPAP as needed at night. Continue antibiotics. Job ID: [id number]
[2019-03-08] MEDS: Nicotine 14 MG PATCH TD SCH (21:30)
[2019-03-09] MEDS: Sodium Chloride 0.9% 1,000 ML IV SCH ×3 (00:56→16:22)
[2019-03-09] MEDS: Acetaminophen 325 MG TAB PO PRN ×2 (00:56→14:31)
[2019-03-09] MEDS: Calcium Carbonate 500 MG ChewTAB PO PRN ×2 (01:49→12:24)
[2019-03-09] MEDS: Morphine 4 MG/ML VIAL SLOW IVP PRN ×5 (01:49→12:33)
[2019-03-09] MEDS: Vancomycin 1.5 GRAM/300 ML BAG 1.5 GM in Premix Bag 1 BAG IVPB SCH ×2 (01:50→17:20)
[2019-03-09 03:23] LABS: Vancomycin, Trough 25.4 ug/mL
[2019-03-09 03:29] LABS: #Lymphocytes 0.9 thou/uL (1.20-3.40); #Monocytes 0.6 thou/uL (0.11-0.59); #Neutrophils 10.8 thou/uL (1.40-6.50); %Monocytes 4.8 % (0.0-10.0); %Neutrophils 88.1 % (42.0-75.0); Hemoglobin 8.2 g/dL (14.0-18.0); Mean Corpuscular HGB CONC 30.8 g/dL (32.0-36.0); Mean Corpuscular Volume 84.4 fL (78.0-98.0); Mean Platelet Volume 6.4 fL (7.4-10.4); Platelet Count 429 thou/uL (130-400); RBC Distribution Width 14.5 % (11.5-14.5); Red Blood Cell (RBC) Count 3.16 mill/uL (4.70-6.10); White Blood Cell (WBC) Count 12.3 thou/uL (4.8-10.8)
[2019-03-09 03:49] LABS: Anion Gap 11 mmol/L (10-20); BUN (Urea Nitrogen) 16 mg/dL (8.9-20.6); Calc. Creatinine Clearance 0 mL/min (70-130); Carbon Dioxide 30 mmol/L (22-29); Chloride 98 mmol/L (98-107); Estimated GFR-MDRD Greater than 90; Glucose 138 mg/dL (70-105); Potassium 5.2 mmol/L (3.5-5.1); Sodium 134 mmol/L (136-145)
--- NOTE | 2019-03-09 05:59 | PDOC.FM ---
- Subjective Subjective: NAEO. No concerns per nursing. On exam this AM, patient resting in bed with Bipap in place. No distress. - Objective MAR Reviewed: Yes Vital Signs & Weight: Vital Signs (12 hours) Temp Resp Pulse Ox 03/09/19 04:00 98.5 F 03/09/19 03:39 98 03/09/19 00:50 19 98 03/09/19 00:00 98.4 F 03/08/19 23:03 98 03/08/19 23:00 98 03/08/19 20:00 95 03/08/19 19:12 95 03/08/19 19:11 94 L 03/08/19 19:00 99 F Weight Admit Weight 97.976 kg Weight 100.9 g Most Recent Monitor Data Heart Rate from ECG 87 NIBP 161/116 NIBP BP-Mean 131 Respiration from ECG 12 SpO2 96 I&O: 03/07/19 03/08/19 03/09/19 06:59 06:59 06:59 Intake Total 1960 4318 3530 Output Total 25 4175 2115 Balance 2664 052 7709 Result Diagrams: 03/09/19 03:15 03/09/19 03:15 Phys Exam - Physical Examination Constitutional: NAD HEENT: moist MMs, sclera anicteric Neck: supple, full ROM Respiratory: clear to auscultation bilateral Cardiovascular: RRR, no significant murmur, no rub Gastrointestinal: soft, non-tender, no distention, positive bowel sounds Musculoskeletal: pulses present Kana wrap in place on RLE, clean/dry/intact Neurological: non-focal Psychiatric: normal affect Skin: no rash, normal turgor, cap refill <2 seconds Dx/Plan (1) Alcohol abuse Code(s): F10.10 - ALCOHOL ABUSE, UNCOMPLICATED Status: Acute (2) History of DVT (deep vein thrombosis) Code(s): Z86.718 - PERSONAL HISTORY OF OTHER VENOUS THROMBOSIS AND EMBOLISM Status: Acute (3) PVD (peripheral vascular disease) Code(s): I73.9 - PERIPHERAL VASCULAR DISEASE, UNSPECIFIED Status: Acute (4) Gangrene of lower extremity Code(s): I96 - GANGRENE, NOT ELSEWHERE CLASSIFIED Status: Acute (5) Hypertension Code(s): I10 - ESSENTIAL (PRIMARY) HYPERTENSION Status: Acute (6) Sepsis due to skin infection Code(s): L03.90 - CELLULITIS, UNSPECIFIED; A41.9 - SEPSIS, UNSPECIFIED ORGANISM Status: Acute - Plan Plan: #Ischemic right lower extremity with necrotic skin changes s/p debridement on 03/[address] Flores. Debridement 03/08 with Mark again. - CV surg on the case, appreciate recs. Can likely move to the floor per CV surg. - Left leg will eventually need left AKA per CV surg - On vanc & meropenem; prelim cx showing gram neg manjeet. Blood cx NGTD. Vanc trough 25 - pharm to help dose. - Pain controlled with toradol, morphine #Sepsis 2/2 above, resolved - see above #Anemia Likely ACD and dilutional - Hb 10.9 -> 9.5 -> 8.2 - Iron studies: low iron, normal ferritin. Additional studies pending. #PVD see above #HTN - Patient initially started on increased dose of home lisinopril. Will start lisinopril/HCTZ to try to get better BP control. BPs have been running 150-70/ 100s. Goal <140/80. #likely LUIS - continue Bipap at night #Tobacco abuse - Counseled on cessation. Nicotine patch PRN #Alcohol abuse - ASE protocol CODE: Full DVT ppx: Lovenox GI ppx: pepcid PCP: none Dispo: > 2 midnights, pending clinical course. Discussed with Dr. Hightower. Addendum - Attending - Attending Attestation Date/Time: 03/09/19 0977 I personally evaluated the patient and discussed the management with Dr. Granda. I agree with the History, Examination, Assessment and Plan documented above with any addition or exceptions noted below.
[2019-03-09] MEDS: MEROPENEM 1 GM/50 ML 1 GM in Premix Bag 1 BAG IVPB SCH ×3 (06:05→21:38)
[2019-03-09] MEDS: methylPREDNISolone Sod Succ 40 MG VIAL IVP SCH ×3 (06:06→17:13)
[2019-03-09] MEDS: Folic Acid 1 MG TAB PO SCH (08:23)
[2019-03-09] MEDS: Tamsulosin HCl 0.4 MG CAP PO SCH (08:23)
[2019-03-09] MEDS: Thiamine 100 MG TAB PO SCH (08:24)
[2019-03-09] MEDS: Multivitamin W/ Minerals 1 TAB PO SCH (08:24)
[2019-03-09] MEDS: Magnesium Oxide 400 MG TAB PO SCH (08:24)
[2019-03-09] MEDS: Famotidine 20 MG TAB PO SCH ×2 (08:24→20:03)
[2019-03-09] MEDS ORDERED: Lisinopril/Hydrochlorothiazide 20 mg/12.5 mg Tablet PO SCH (09:00)
[2019-03-09] MEDS: Ketorolac Tromethamine 30 MG/ML VIAL IVP PRN (09:56)
--- NOTE | 2019-03-09 10:06 | PRG ---
DATE OF SERVICE: 03/09/2019 SUBJECTIVE: The patient is doing reasonably well. He enjoys wearing the BiPAP at night. OBJECTIVE: VITAL SIGNS: On exam, temperature 98.5, pulse 93, blood pressure 179/119, O2 saturation 96%. HEENT: Unremarkable. NECK: No adenopathy or JVD. CHEST: Clear. CARDIAC: S1, S2. Regular. ABDOMEN: Soft. EXTREMITIES: He has wound dressing over his right leg. LABORATORY DATA: White blood cell count 12.3, hematocrit 26.7, and platelet count 429. Sodium 134, potassium 5.2, chloride 98, CO2 of 30, BUN 16, creatinine 0.7, glucose 138. ASSESSMENT: 1. Infected leg wounds. 2. Chronic obstructive pulmonary disease. 3. Probable underlying obstructive sleep apnea. PLAN: 1. Continue BiPAP at night. 2. Continue wound care and antibiotics. 3. Dr. Macdonald will recheck him early next week. Job ID: [id number]
[2019-03-09 13:28] LABS: Iron 15 ug/dL (65-175); Iron Binding Capacity, Total 186 mcg/dL (261-462); Transferrin, Serum 149 mg/dL (174-364)
--- NOTE | 2019-03-09 14:11 | PRG ---
DATE OF SERVICE: 03/09/2019 SUBJECTIVE: Mr. Goodson is a 48-year-old man with history of severe peripheral vascular disease and chronic tobacco abuse, who is postoperative day #1 and 2 for excisional debridement of chronic necrotic right lower extremity ulcers. He is awake and alert today. He has remained hemodynamically stable since admission. He is requiring bedtime BiPAP for sleep apnea. I discussed with him the findings of the recent CT angiography with runoff to lower extremities, which is remarkable for significant peripheral vascular disease. I informed him that of the three major arterial supply to the [id number] right lower extremity, only one vessel appears to be open, which puts him at great risk, if he continues to smoke. OBJECTIVE: VITAL SIGNS: Today include blood pressure 168/109, pulse is 96, respiratory rate is 18, maximum temperature in last 24 hours is 99.6 degrees Fahrenheit, oxygen saturation currently is 98% on 2 L by nasal cannula oxygen. HEART: Reveals regular rate and rhythm. LUNGS: Clear to auscultation bilaterally. ABDOMEN: Soft, nontender, nondistended. EXTREMITIES: Right foot is warm to touch, though pulses are nonpalpable. The right leg wound is being managed with local wound care. NEUROLOGIC: Reveals no focal deficits present. LABORATORY FINDINGS: Include a CBC with 12,300 white blood cells, hemoglobin and hematocrit 8.2 and 26.7, respectively. Platelet count is 429,000. Metabolic profile; sodium 134, potassium is 5.2, chloride is 98, bicarb is 30, BUN is 16, creatinine 0.73, glucose 138. IMPRESSIONS: Chronic necrotic right lower extremity ulcers secondary to severe peripheral vascular disease and tobacco abuse. PLAN: Continue local wound care. The patient will probably be placed on maggot therapy over the next coming days. I have advised the patient that he needs to quit smoking, failure of which will more and likely lead to loss of his right lower extremity, perhaps even the left lower extremity as well. He seems to indicate understanding of information given. I answered his questions. He is hemodynamically stable for transfer to general surgical floor. Job ID: [id number]
[2019-03-09] MEDS ORDERED: Acetaminophen 325 MG TAB PO SCH (15:30)
[2019-03-09] MEDS ORDERED: Polyethylene Glycol 3350 17 GM Packet PO SCH (15:30)
[2019-03-09] MEDS ORDERED: traMADol HCl 50 MG TAB PO SCH (16:30)
[2019-03-09] MEDS: Ibuprofen 800 MG TAB PO SCH (17:11)
[2019-03-09] MEDS: Acetaminophen 325 MG TAB PO SCH ×2 (17:11→20:03)
[2019-03-09] MEDS: traMADol HCl 50 MG TAB PO SCH (17:14)
[2019-03-09] MEDS ORDERED: Carvedilol 25 MG TAB PO SCH (18:11)
[2019-03-09] MEDS: Senokot S 8.6-50 MG TAB PO SCH (20:03)
[2019-03-09] MEDS: hydrALAZINE 20 MG/ML VIAL SLOW IVP PRN (20:51)
[2019-03-09] MEDS: Nicotine 14 MG PATCH TD SCH (21:39)
[2019-03-09] MEDS: Labetalol HCl 100 MG/20 ML VIAL SLOW IVP PRN (22:48)
[2019-03-10] MEDS: Ibuprofen 800 MG TAB PO SCH ×3 (00:09→14:38)
[2019-03-10] MEDS: Sodium Chloride 0.9% 1,000 ML IV SCH ×3 (00:09→13:45)
[2019-03-10] MEDS: traMADol HCl 50 MG TAB PO SCH ×4 (00:10→17:59)
[2019-03-10] MEDS: Acetaminophen 325 MG TAB PO SCH ×6 (00:10→20:34)
[2019-03-10] MEDS: methylPREDNISolone Sod Succ 40 MG VIAL IVP SCH ×4 (00:11→17:40)
[2019-03-10] MEDS: hydrALAZINE 20 MG/ML VIAL SLOW IVP PRN ×3 (05:13→19:49)
[2019-03-10] MEDS: MEROPENEM 1 GM/50 ML 1 GM in Premix Bag 1 BAG IVPB SCH ×3 (05:15→20:35)
[2019-03-10] MEDS: Vancomycin 1.5 GRAM/300 ML BAG 1.5 GM in Premix Bag 1 BAG IVPB SCH ×2 (05:15→17:39)
[2019-03-10 05:25] LABS: #Lymphocytes 0.9 thou/uL (1.20-3.40); #Monocytes 0.6 thou/uL (0.11-0.59); #Neutrophils 7.1 thou/uL (1.40-6.50); %Basophils 0.3 % (0.0-1.0); %Lymphocytes 10.8 % (21.0-51.0); %Monocytes 6.4 % (0.0-10.0); %Neutrophils 82.5 % (42.0-75.0); Hemoglobin 8.6 g/dL (14.0-18.0); Mean Corpuscular HGB CONC 31.2 g/dL (32.0-36.0); Mean Corpuscular Hemoglobin 25.8 pg (27.0-31.0); Mean Corpuscular Volume 82.7 fL (78.0-98.0); Mean Platelet Volume 6.6 fL (7.4-10.4); Platelet Count 488 thou/uL (130-400); RBC Distribution Width 14.6 % (11.5-14.5); Red Blood Cell (RBC) Count 3.34 mill/uL (4.70-6.10); White Blood Cell (WBC) Count 8.5 thou/uL (4.8-10.8)
[2019-03-10 05:40] LABS: Anion Gap 11 mmol/L (10-20); BUN (Urea Nitrogen) 18 mg/dL (8.9-20.6); Calc. Creatinine Clearance 0 mL/min (70-130); Calcium 9.3 mg/dL (7.8-10.44); Carbon Dioxide 34 mmol/L (22-29); Chloride 95 mmol/L (98-107); Estimated GFR-MDRD Greater than 90; Glucose 142 mg/dL (70-105); Potassium 4.5 mmol/L (3.5-5.1); Sodium 135 mmol/L (136-145)
[2019-03-10] MEDS: Labetalol HCl 100 MG/20 ML VIAL SLOW IVP PRN ×2 (05:44→13:51)
--- NOTE | 2019-03-10 06:50 | PDOC.FM ---
- Subjective Subjective: Patient's BP elevated overnight and given hydralazine and labetalol PRN. No other concerns per nursing. Patient resting in bed, sleeping. Patient hard to wake up for exam. - Objective MAR Reviewed: Yes Vital Signs & Weight: Vital Signs (12 hours) Temp Pulse Resp BP BP Pulse Ox 03/10/19 06:31 156/81 H 03/10/19 05:50 158/92 H 03/10/19 05:44 83 197/99 H 03/10/19 05:13 83 181/111 H 03/10/19 05:05 98 F 98 23 H 190/124 H 94 L 03/10/19 02:26 88 20 98 03/10/19 00:17 98.3 F 84 18 174/99 H 94 L 03/09/19 23:39 166/95 H 03/09/19 22:48 88 185/96 H 03/09/19 22:08 96 18 95 03/09/19 20:51 94 187/116 H 03/09/19 20:42 98.2 F 94 22 H 187/116 H 96 Weight Admit Weight 97.976 kg Weight 100.9 g Most Recent Monitor Data Heart Rate from ECG 96 NIBP 168/109 NIBP BP-Mean 128 Respiration from ECG 18 SpO2 98 I&O: 03/08/19 03/09/19 03/10/19 06:59 06:59 06:59 Intake Total 4318 4718 2485 Output Total 4175 2115 1500 Balance 143 2603 985 Result Diagrams: 03/10/19 04:52 03/10/19 04:52 Phys Exam - Physical Examination Constitutional: NAD HEENT: moist MMs, sclera anicteric Neck: supple, full ROM Respiratory: clear to auscultation bilateral Cardiovascular: RRR, no significant murmur, no rub Gastrointestinal: soft, non-tender, no distention, positive bowel sounds wrap in place over RLE from below knee to ankle; LLE with wrap over heel Neurological: non-focal, moves all 4 limbs Psychiatric: normal affect Skin: no rash, normal turgor, cap refill <2 seconds Dx/Plan (1) Alcohol abuse Code(s): F10.10 - ALCOHOL ABUSE, UNCOMPLICATED Status: Acute (2) History of DVT (deep vein thrombosis) Code(s): Z86.718 - PERSONAL HISTORY OF OTHER VENOUS THROMBOSIS AND EMBOLISM Status: Acute (3) PVD (peripheral vascular disease) Code(s): I73.9 - PERIPHERAL VASCULAR DISEASE, UNSPECIFIED Status: Acute (4) Gangrene of lower extremity Code(s): I96 - GANGRENE, NOT ELSEWHERE CLASSIFIED Status: Acute (5) Hypertension Code(s): I10 - ESSENTIAL (PRIMARY) HYPERTENSION Status: Acute (6) Sepsis due to skin infection Code(s): L03.90 - CELLULITIS, UNSPECIFIED; A41.9 - SEPSIS, UNSPECIFIED ORGANISM Status: Acute - Plan Plan: #Ischemic right lower extremity with necrotic skin changes s/p debridement on 03/[address] Flores. Debridement 03/08 with Mark again. - CV surg on the case, appreciate recs. - Left leg will eventually need left AKA per CV surg - On vanc & meropenem; prelim cx showing gram neg manjeet, presumptive pseudomonas. Blood cx NGTD. Pharmacy to help dose vancomycin. - Pain controlled with toradol, morphine #Sepsis 2/2 above, resolved - see above #Anemia Likely ACD component and iron deficiency - Hb 10.9 -> 9.5 -> 8.2 - Iron studies: low iron, normal ferritin, low transferrin, % saturation and TIBC. Will start on iron daily. #PVD see above #HTN - Will start lisinopril/HCTZ to try to get better BP control. Home meds coreg and chlorthalidone started. Hydralazine and labetalol PRN. #likely LUIS - continue Bipap at night #Tobacco abuse - Counseled on cessation. Nicotine patch PRN. #Alcohol abuse - ASE protocol CODE: Full DVT ppx: Lovenox GI ppx: pepcid PCP: none Dispo: > 2 midnights, pending clinical course. Discussed with Dr. Bedoya. Addendum - Attending - Attending Attestation Date/Time: 03/10/19 0136 I personally evaluated the patient and discussed the management with the team. I agree with the History, Examination, Assessment and Plan documented above with any addition or exceptions noted below. Patient easily rousable for me - no cp/sob/n/v/f/c. No leg pain. Bandages in place. He is going to OR tomorrow for maggot placement per patient. Continue antibiotics.
[2019-03-10] MEDS: Ferrous Sulfate 325 MG TAB PO SCH (08:31)
[2019-03-10] MEDS: Famotidine 20 MG TAB PO SCH ×2 (08:34→20:34)
[2019-03-10] MEDS: Carvedilol 25 MG TAB PO SCH ×2 (08:34→20:34)
[2019-03-10] MEDS: Lisinopril/Hydrochlorothiazide 20/25 mg Tablet PO SCH (08:34)
[2019-03-10] MEDS: Multivitamin W/ Minerals 1 TAB PO SCH (08:36)
[2019-03-10] MEDS: Folic Acid 1 MG TAB PO SCH (08:36)
[2019-03-10] MEDS: Tamsulosin HCl 0.4 MG CAP PO SCH (08:36)
[2019-03-10] MEDS: Magnesium Oxide 400 MG TAB PO SCH (08:36)
[2019-03-10] MEDS: Thiamine 100 MG TAB PO SCH (08:37)
[2019-03-10] MEDS: Polyethylene Glycol 3350 17 GM Packet PO SCH (08:37)
[2019-03-10] MEDS: Senokot S 8.6-50 MG TAB PO SCH ×2 (08:37→20:59)
[2019-03-10] MEDS: Cyclobenzaprine 10 MG TAB PO PRN ×2 (11:49→20:34)
[2019-03-10] MEDS: Chlorthalidone 25 MG TAB PO SCH (12:16)
[2019-03-10] MEDS: traMADol HCl 50 MG TAB PO PRN (14:38)
[2019-03-10] MEDS: Nicotine 14 MG PATCH TD SCH (20:35)
[2019-03-10] MEDS: Calcium Carbonate 500 MG ChewTAB PO PRN (20:50)
--- NOTE | 2019-03-10 21:11 | PRG ---
DATE OF SERVICE: 03/10/2019 SUBJECTIVE: Mr. Goodson is postoperative day #3 from extensive debridement of necrotizing wound of his right lower leg. In my absence, I believe Dr. Ward performed a subsequent operative debridement. He has also been seen in consultation by Pulmonary Medicine and Dr. Seals (Vascular Surgery). The patient had a CT scan performed of his neck as well as ultrasound performed of his neck and a CT angiogram. He has had dressing changes performed on his right lower leg and his left foot. He continues to receive antibiotics including meropenem and vancomycin. Cultures have revealed multiple organisms including presumptive Pseudomonas, Streptococcus, and multiple gram-negative rods. Final culture results are still pending. The patient has no complaints. He denies pain in his leg. He knows that he has not smoked since he has been admitted and is using his nicotine patch. PHYSICAL EXAMINATION: VITAL SIGNS: He is afebrile. Pulse is 84 to 94, blood pressure has been persistently elevated. Earlier to this night, it was 192/112. MUSCULOSKELETAL: Examination is unremarkable except for his extremities. His right foot is warm to palpation. Circumferential dressing is intact on his right lower leg. He also has a dressing on his left foot. LABORATORY DATA: His hemoglobin is low at 8.6, white blood cell count is 8.5, and platelet count 466. His iron studies show that his iron level is markedly low at 15. His sodium and chloride are both little bit low. His blood sugar is slightly elevated at 142. ASSESSMENT: The patient with a large right leg wound, some form of wound on his left foot. I will need to see these with the Wound Care Team tomorrow to determine further treatment. If possible, he could require further debridement or initiating maggot therapy. For now, he will continue with wound care and antibiotics and further decisions made after . Job ID: [id number]
[2019-03-11] MEDS: traMADol HCl 50 MG TAB PO SCH ×5 (00:18→23:30)
[2019-03-11] MEDS: Acetaminophen 325 MG TAB PO SCH ×6 (00:18→20:17)
[2019-03-11] MEDS: traMADol HCl 50 MG TAB PO PRN ×4 (00:20→18:31)
[2019-03-11] MEDS: Ibuprofen 800 MG TAB PO SCH ×4 (00:21→23:37)
[2019-03-11] MEDS: methylPREDNISolone Sod Succ 40 MG VIAL IVP SCH ×5 (00:21→23:46)
[2019-03-11] MEDS: hydrALAZINE 20 MG/ML VIAL SLOW IVP PRN ×3 (03:34→23:38)
[2019-03-11] MEDS: Sodium Chloride 0.9% 1,000 ML IV SCH ×3 (03:48→20:17)
[2019-03-11] MEDS: Cyclobenzaprine 10 MG TAB PO PRN ×3 (04:03→23:37)
[2019-03-11 04:50] LABS: #Lymphocytes 0.9 thou/uL (1.20-3.40); #Monocytes 0.6 thou/uL (0.11-0.59); #Neutrophils 6.3 thou/uL (1.40-6.50); %Eosinophils 0.1 % (0.0-10.0); %Neutrophils 80.8 % (42.0-75.0); Hemoglobin 9.1 g/dL (14.0-18.0); Mean Corpuscular HGB CONC 30.9 g/dL (32.0-36.0); Mean Corpuscular Hemoglobin 25.3 pg (27.0-31.0); Mean Corpuscular Volume 81.9 fL (78.0-98.0); Mean Platelet Volume 6.7 fL (7.4-10.4); Platelet Count 477 thou/uL (130-400); RBC Distribution Width 14.6 % (11.5-14.5); Red Blood Cell (RBC) Count 3.61 mill/uL (4.70-6.10); White Blood Cell (WBC) Count 7.8 thou/uL (4.8-10.8)
[2019-03-11 05:12] LABS: Anion Gap 12 mmol/L (10-20); BUN (Urea Nitrogen) 21 mg/dL (8.9-20.6); Calc. Creatinine Clearance 0 mL/min (70-130); Carbon Dioxide 36 mmol/L (22-29); Chloride 91 mmol/L (98-107); Estimated GFR-MDRD Greater than 90; Glucose 126 mg/dL (70-105); Potassium 4.5 mmol/L (3.5-5.1); Sodium 134 mmol/L (136-145)
[2019-03-11] MEDS: MEROPENEM 1 GM/50 ML 1 GM in Premix Bag 1 BAG IVPB SCH ×3 (05:59→21:23)
[2019-03-11] MEDS: Vancomycin 1.5 GRAM/300 ML BAG 1.5 GM in Premix Bag 1 BAG IVPB SCH ×2 (06:06→06:09)
[2019-03-11] MEDS: Vancomycin HCl 1.75 GM in Sodium Chloride 0.9% 500 ML IVPB SCH ×2 (06:43→18:34)
--- NOTE | 2019-03-11 06:46 | PDOC.FM ---
- Subjective Subjective: NAEO. No concerns per nursing. Patient resting comfortably in bed. Pain controlled with current meds. States pain is a 7/10 currently but controlled. - Objective MAR Reviewed: Yes Vital Signs & Weight: Vital Signs (12 hours) Temp Pulse Resp BP BP Pulse Ox 03/11/19 04:00 77 163/102 H 03/11/19 03:34 72 189/113 H 03/11/19 03:24 97.4 F L 14 189/113 H 98 03/11/19 03:02 72 12 100 03/11/19 01:36 14 03/10/19 23:31 97.4 F L 77 16 137/81 98 03/10/19 22:57 80 18 03/10/19 20:42 94 148/96 H 03/10/19 19:49 84 192/112 H 03/10/19 19:26 98 F 84 16 192/112 H 95 03/10/19 19:13 83 16 97 Weight Admit Weight 97.976 kg Weight 100.9 g Most Recent Monitor Data Heart Rate from ECG 96 NIBP 168/109 NIBP BP-Mean 128 Respiration from ECG 18 SpO2 98 I&O: 03/09/19 03/10/19 03/11/19 06:59 06:59 06:59 Intake Total 4718 2485 1954 Output Total 2115 1500 1295 Balance 2603 985 659 Result Diagrams: 03/11/19 04:36 03/11/19 04:36 Phys Exam - Physical Examination Constitutional: NAD HEENT: moist MMs, sclera anicteric Neck: supple, full ROM Respiratory: no wheezing, no rales, no rhonchi, clear to auscultation bilateral Cardiovascular: RRR, no significant murmur, no rub Gastrointestinal: soft, non-tender, no distention, positive bowel sounds Wrap on RLE from knee to ankle; wrap on LLE heel; cl/dry/intact Neurological: non-focal Psychiatric: normal affect, A&O x 3 Skin: normal turgor, cap refill <2 seconds Deviation from normal: calluses noted on b/l hands Dx/Plan (1) Alcohol abuse Code(s): F10.10 - ALCOHOL ABUSE, UNCOMPLICATED Status: Acute (2) History of DVT (deep vein thrombosis) Code(s): Z86.718 - PERSONAL HISTORY OF OTHER VENOUS THROMBOSIS AND EMBOLISM Status: Acute (3) PVD (peripheral vascular disease) Code(s): I73.9 - PERIPHERAL VASCULAR DISEASE, UNSPECIFIED Status: Acute (4) Gangrene of lower extremity Code(s): I96 - GANGRENE, NOT ELSEWHERE CLASSIFIED Status: Acute (5) Hypertension Code(s): I10 - ESSENTIAL (PRIMARY) HYPERTENSION Status: Acute (6) Sepsis due to skin infection Code(s): L03.90 - CELLULITIS, UNSPECIFIED; A41.9 - SEPSIS, UNSPECIFIED ORGANISM Status: Acute - Plan Plan: #Ischemic right lower extremity with necrotic skin changes s/p debridement on 03/[address] Flores. Debridement 03/08 with Mark again. - CV surg on the case, appreciate recs. - Patient to have maggot therapy vs another debridement today - On vanc & meropenem; prelim cx showing gram neg manjeet, presumptive pseudomonas. Awaiting sensitivities. Blood cx NGTD. Pharmacy to help dose vancomycin. - Pain controlled with tylenol, ibuprofen, and tramadol #Sepsis 2/2 above, resolved - see above #Anemia Likely ACD component and iron deficiency - Hb 10.9 -> 9.5 -> 8.2 -> 9.1 - Iron studies: low iron, normal ferritin, low transferrin, % saturation and TIBC. Will start on iron daily. #PVD see above - advised to stop smoking or would likely be a bilateral amputee within the year. #HTN - Will start lisinopril/HCTZ to try to get better BP control. Home meds coreg and chlorthalidone started. Increased chlorthalidone dosage as Bps still elevated. Hydralazine and labetalol PRN. #likely LUIS - continue Bipap at night #Tobacco abuse - Counseled on cessation. Nicotine patch PRN. #Alcohol abuse - ASE protocol CODE: Full DVT ppx: Lovenox GI ppx: pepcid PCP: none Dispo: > 2 midnights, pending clinical course. Discussed with Dr. Gaxiola. Addendum - Attending - Attending Attestation Date/Time: 03/11/19 8921 I personally evaluated the patient and discussed the management with Dr. Granda I agree with the History, Examination, Assessment and Plan documented above with any addition or exceptions noted below. Patient for further intervention per Surgery recommendations. Pending C&S results can consider de-escalating antibiotics soon. 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
[2019-03-11] MEDS: Morphine 4 MG/ML VIAL SLOW IVP PRN (08:42)
[2019-03-11] MEDS: Polyethylene Glycol 3350 17 GM Packet PO SCH (08:48)
[2019-03-11] MEDS: Ferrous Sulfate 325 MG TAB PO SCH ×3 (08:48→18:32)
[2019-03-11] MEDS: Senokot S 8.6-50 MG TAB PO SCH ×2 (08:49→20:16)
[2019-03-11] MEDS: Thiamine 100 MG TAB PO SCH (08:49)
[2019-03-11] MEDS: Lisinopril/Hydrochlorothiazide 20/25 mg Tablet PO SCH (08:49)
[2019-03-11] MEDS: Tamsulosin HCl 0.4 MG CAP PO SCH (08:49)
[2019-03-11] MEDS: Magnesium Oxide 400 MG TAB PO SCH (08:49)
[2019-03-11] MEDS: Multivitamin W/ Minerals 1 TAB PO SCH (08:49)
[2019-03-11] MEDS: Famotidine 20 MG TAB PO SCH ×2 (08:50→20:16)
[2019-03-11] MEDS: Folic Acid 1 MG TAB PO SCH (08:50)
[2019-03-11] MEDS: Carvedilol 25 MG TAB PO SCH ×2 (08:50→20:17)
--- NOTE | 2019-03-11 09:06 | PRG ---
DATE OF SERVICE: 03/11/2019 SUBJECTIVE: Mr. Goodson is postoperative day #4 following debridement of a necrotizing ischemic large wound of his right lower leg. He remains on the surgical floor. I examined him today with the wound care team to examine both of his legs. There is a small ulceration on the dorsum of his left foot and a small area on the plantar aspect of his left foot as well. On the right leg, the large open wound looks much better, but it is still difficult to tell where the viable tissue starts and stops. There were couple of tendons that were exposed. The entire area is very painful for him and examination at bedside is challenging. His cultures from his wound are still in progress. He continues to receive meropenem and vancomycin. He has not smoked since admission and is using a nicotine patch. OBJECTIVE: VITAL SIGNS: He is afebrile. Pulse 86 and blood pressure 167/87. SKIN: Wounds are as described above. LABORATORY DATA: CBC shows a white blood cell count of 7.8 and hemoglobin of 9.1. His iron studies were all low showing low levels of iron, I suspect consistent with anemia of chronic disease, given the chronicity of this wound. His sodium and chloride levels are both low on his labs today. I am not entirely certain why. ASSESSMENT AND PLAN: The patient with a large severe ischemic wound of his right lateral leg. I will order maggot therapy to be placed tomorrow. 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 Job ID: [id number]
[2019-03-11] MEDS: Calcium Carbonate 500 MG ChewTAB PO PRN ×2 (09:55→18:44)
[2019-03-11] MEDS: Labetalol HCl 100 MG/20 ML VIAL SLOW IVP PRN (18:47)
[2019-03-11] MEDS: Nicotine 14 MG PATCH TD SCH (21:30)
[2019-03-12] MEDS: Acetaminophen 325 MG TAB PO SCH ×6 (05:42→20:42)
[2019-03-12] MEDS: traMADol HCl 50 MG TAB PO SCH ×4 (05:42→23:31)
[2019-03-12] MEDS: methylPREDNISolone Sod Succ 40 MG VIAL IVP SCH ×4 (05:44→23:40)
[2019-03-12] MEDS: MEROPENEM 1 GM/50 ML 1 GM in Premix Bag 1 BAG IVPB SCH ×3 (05:47→22:04)
[2019-03-12 05:50] LABS: #Lymphocytes 1.1 thou/uL (1.20-3.40); #Monocytes 0.9 thou/uL (0.11-0.59); #Neutrophils 9.1 thou/uL (1.40-6.50); %Basophils 0.1 % (0.0-1.0); %Lymphocytes 10.2 % (21.0-51.0); %Monocytes 8.4 % (0.0-10.0); %Neutrophils 81.3 % (42.0-75.0); Hemoglobin 9.8 g/dL (14.0-18.0); Mean Corpuscular HGB CONC 31.1 g/dL (32.0-36.0); Mean Corpuscular Hemoglobin 25.4 pg (27.0-31.0); Mean Corpuscular Volume 81.5 fL (78.0-98.0); Mean Platelet Volume 7.1 fL (7.4-10.4); Platelet Count 520 thou/uL (130-400); RBC Distribution Width 14.7 % (11.5-14.5); Red Blood Cell (RBC) Count 3.87 mill/uL (4.70-6.10); White Blood Cell (WBC) Count 11.1 thou/uL (4.8-10.8)
[2019-03-12] MEDS: Vancomycin HCl 1.75 GM in Sodium Chloride 0.9% 500 ML IVPB SCH ×2 (05:50→18:20)
[2019-03-12 06:09] LABS: BUN (Urea Nitrogen) 22 mg/dL (8.9-20.6); Calc. Creatinine Clearance 0 mL/min (70-130); Estimated GFR-MDRD Greater than 90; Glucose 117 mg/dL (70-105)
[2019-03-12 06:18] LABS: Anion Gap 10 mmol/L (10-20); Carbon Dioxide 39 mmol/L (22-29); Chloride 91 mmol/L (98-107); Potassium 4.2 mmol/L (3.5-5.1); Sodium 136 mmol/L (136-145)
--- NOTE | 2019-03-12 06:35 | PDOC.FM ---
- Subjective Subjective: NAEO. Patient resting comfortably in bed. No concerns per nursing. Patient states pain controlled. He did receive morphine overnight. - Objective MAR Reviewed: Yes Vital Signs & Weight: Vital Signs (12 hours) Temp Pulse Resp BP BP Pulse Ox 03/12/19 04:38 98.3 F 74 16 158/91 H 96 03/12/19 01:58 80 16 99 03/12/19 01:00 98.4 F 76 18 143/89 H 97 03/11/19 23:38 77 184/114 H 03/11/19 23:29 98.4 F 80 16 184/114 H 97 03/11/19 20:23 99 03/11/19 20:07 97.6 F 77 19 166/96 H 97 03/11/19 20:00 97 03/11/19 19:30 166/97 H 03/11/19 18:47 74 186/119 H Weight Admit Weight 97.976 kg Weight 100.9 g Most Recent Monitor Data Heart Rate from ECG 96 NIBP 168/109 NIBP BP-Mean 128 Respiration from ECG 18 SpO2 98 I&O: 03/10/19 03/11/19 03/12/19 06:59 06:59 06:59 Intake Total 2485 1954 3110 Output Total 1500 1295 1800 Balance 505 657 2809 Result Diagrams: 03/12/19 05:18 03/12/19 05:18 Phys Exam - Physical Examination Constitutional: NAD HEENT: PERRLA, moist MMs, sclera anicteric poor dentition; geographic tongue Neck: supple, full ROM submental fullness Respiratory: no wheezing, no rales, no rhonchi, clear to auscultation bilateral Cardiovascular: RRR, no significant murmur, no rub Gastrointestinal: soft, non-tender, no distention, positive bowel sounds Musculoskeletal: pulses present shabnam wrap over right leg wound - cl/dr/in; left heal with wrap in plcae mild edema in b/l feet Neurological: non-focal, normal sensation, moves all 4 limbs Psychiatric: normal affect, A&O x 3 Skin: normal turgor, cap refill <2 seconds Dx/Plan (1) Alcohol abuse Code(s): F10.10 - ALCOHOL ABUSE, UNCOMPLICATED Status: Acute (2) History of DVT (deep vein thrombosis) Code(s): Z86.718 - PERSONAL HISTORY OF OTHER VENOUS THROMBOSIS AND EMBOLISM Status: Acute (3) PVD (peripheral vascular disease) Code(s): I73.9 - PERIPHERAL VASCULAR DISEASE, UNSPECIFIED Status: Acute (4) Gangrene of lower extremity Code(s): I96 - GANGRENE, NOT ELSEWHERE CLASSIFIED Status: Acute (5) Hypertension Code(s): I10 - ESSENTIAL (PRIMARY) HYPERTENSION Status: Acute (6) Sepsis due to skin infection Code(s): L03.90 - CELLULITIS, UNSPECIFIED; A41.9 - SEPSIS, UNSPECIFIED ORGANISM Status: Acute - Plan Plan: #Ischemic right lower extremity with necrotic skin changes s/p debridement on 03/[address] Flores. Debridement 03/08 with Mark again. - CV surg on the case, appreciate recs. - Patient to have maggot therapy 03/12/19 - On vanc & meropenem; prelim cx showing gram neg manjeet, presumptive pseudomonas, staph aureas. Awaiting sensitivities. Blood cx NGTD. Pharmacy to help dose vancomycin. - Pain controlled with tylenol, ibuprofen, tramadol and morphine #Sepsis 2/2 above, resolved - see above #Submental lymphadenopathy noted on previous exam - Neck CT showing enlargement of submandibular glands and tonsils, cervical adenopathy. Patient can follow up with ENT outpatient to have evaluated. #Anemia Likely ACD component and iron deficiency - Hb 10.9 -> 9.5 -> 8.2 -> 9.1 - Iron studies: low iron, normal ferritin, low transferrin, % saturation and TIBC. Will start on iron daily. #PVD see above - advised to stop smoking or would likely be a bilateral amputee within the year. #HTN - Will start lisinopril/HCTZ to try to get better BP control. Home meds coreg and chlorthalidone started. Increased chlorthalidone dosage as Bps still elevated. Hydralazine and labetalol PRN. #likely LUIS - continue Bipap at night #Tobacco abuse - Counseled on cessation. Nicotine patch PRN. #Alcohol abuse - ASE protocol CODE: Full DVT ppx: Lovenox GI ppx: pepcid PCP: none Dispo: > 2 midnights, pending clinical course. Discussed with Dr. Gaxiola. Addendum - Attending - Attending Attestation Date/Time: 03/12/19 3467 I personally evaluated the patient and discussed the management with Dr. Granda I agree with the History, Examination, Assessment and Plan documented above with any addition or exceptions noted below. Patient appears to have contraction metabolic alkalosis rec d/c chorathalidone add change IV fluids from NS to LR repeat AM lytes.
[2019-03-12] MEDS: Ibuprofen 800 MG TAB PO SCH ×3 (07:29→23:30)
[2019-03-12] MEDS: Cyclobenzaprine 10 MG TAB PO PRN ×3 (07:30→23:30)
[2019-03-12] MEDS: Ferrous Sulfate 325 MG TAB PO SCH ×3 (07:30→18:19)
[2019-03-12] MEDS: Losartan/Hydrochlorothiazide 100 mg/25 mg Tablet PO SCH (09:43)
[2019-03-12] MEDS: Carvedilol 25 MG TAB PO SCH ×2 (09:43→20:42)
[2019-03-12] MEDS: Tamsulosin HCl 0.4 MG CAP PO SCH (09:44)
[2019-03-12] MEDS: Thiamine 100 MG TAB PO SCH (09:44)
[2019-03-12] MEDS: Magnesium Oxide 400 MG TAB PO SCH (09:44)
[2019-03-12] MEDS: Multivitamin W/ Minerals 1 TAB PO SCH (09:44)
[2019-03-12] MEDS: Famotidine 20 MG TAB PO SCH (09:44)
[2019-03-12] MEDS: Senokot S 8.6-50 MG TAB PO SCH ×2 (09:44→20:42)
[2019-03-12] MEDS: Polyethylene Glycol 3350 17 GM Packet PO SCH (09:44)
[2019-03-12] MEDS: Folic Acid 1 MG TAB PO SCH (09:44)
[2019-03-12] MEDS: Chlorthalidone 25 MG TAB PO SCH ×2 (09:48→09:49)
[2019-03-12] MEDS ORDERED: Amlodipine 10 MG TAB PO SCH (11:15)
[2019-03-12] MEDS: Morphine 4 MG/ML VIAL SLOW IVP PRN (12:08)
[2019-03-12] MEDS: Lactated Ringer's 1,000 ML IV SCH ×2 (12:15→20:43)
[2019-03-12] MEDS: Labetalol HCl 100 MG/20 ML VIAL SLOW IVP PRN (12:17)
[2019-03-12] MEDS: traMADol HCl 50 MG TAB PO PRN (13:55)
[2019-03-12] MEDS: Calcium Carbonate 500 MG ChewTAB PO PRN (15:31)
[2019-03-12 17:34] LABS: Vancomycin, Trough 19.7 ug/mL
--- NOTE | 2019-03-12 17:40 | PRG ---
DATE OF SERVICE: 03/12/2019 SUBJECTIVE: Mr. Goodson remains on the surgical floor. He has a dressing intact on his right lower leg. He was examined today with wound care team. The patient has extraordinary pain with dressing changes. Today, his prior dressing was removed and maggots were applied to the open somewhat necrotic wound of his right leg. There is no foul smell associated with his leg at this time. OBJECTIVE: VITAL SIGNS: He is afebrile. Vital signs within normal limits. LABORATORY DATA: His white blood cell count is 11 and hemoglobin is 9.8. ASSESSMENT: Huge open wound involving most of his right lower leg. PLAN: Maggot therapy for the next 48 hours with continued wound care as appropriate. He has not smoked since his surgery. We will continue on antibiotics without meropenem and vancomycin. Job ID: [id number]
[2019-03-12] MEDS: Nicotine 14 MG PATCH TD SCH (22:05)
[2019-03-13] MEDS: Acetaminophen 325 MG TAB PO SCH ×6 (00:12→20:22)
[2019-03-13] MEDS: Calcium Carbonate 500 MG ChewTAB PO PRN (00:14)
[2019-03-13] MEDS: traMADol HCl 50 MG TAB PO PRN ×3 (01:47→17:31)
[2019-03-13] MEDS ORDERED: Ibuprofen 600 MG TAB ONE (06:22)
[2019-03-13] MEDS ORDERED: methylPREDNISolone Sod Succ 40 MG VIAL ONE (06:22)
[2019-03-13] MEDS ORDERED: Acetaminophen 325 MG TAB ONE (06:23)
[2019-03-13] MEDS ORDERED: traMADol HCl 50 MG TAB ONE (06:24)
[2019-03-13] MEDS ORDERED: hydrALAZINE 20 MG/ML VIAL ONE (06:25)
[2019-03-13] MEDS ORDERED: Morphine 2 MG/ML SYRINGE ONE (08:31)
[2019-03-13] MEDS: Carvedilol 25 MG TAB PO SCH ×2 (08:35→20:22)
[2019-03-13] MEDS: Senokot S 8.6-50 MG TAB PO SCH ×2 (08:35→20:22)
[2019-03-13] MEDS: Multivitamin W/ Minerals 1 TAB PO SCH (08:35)
[2019-03-13] MEDS: Tamsulosin HCl 0.4 MG CAP PO SCH (08:35)
[2019-03-13] MEDS: Magnesium Oxide 400 MG TAB PO SCH (08:35)
[2019-03-13] MEDS: Polyethylene Glycol 3350 17 GM Packet PO SCH (08:35)
[2019-03-13] MEDS: Ferrous Sulfate 325 MG TAB PO SCH ×2 (08:35→17:32)
[2019-03-13] MEDS: Losartan/Hydrochlorothiazide 100 mg/25 mg Tablet PO SCH (08:35)
[2019-03-13] MEDS: Folic Acid 1 MG TAB PO SCH (08:35)
[2019-03-13] MEDS: Thiamine 100 MG TAB PO SCH (08:35)
[2019-03-13] MEDS ORDERED: Amlodipine 5 MG TAB PO SCH ×2 (09:00→12:45)
[2019-03-13] MEDS ORDERED: Amlodipine 5 MG TAB ONE (11:30)
[2019-03-13] MEDS: traMADol HCl 50 MG TAB PO SCH ×3 (11:35→17:31)
[2019-03-13] MEDS: methylPREDNISolone Sod Succ 40 MG VIAL IVP SCH ×3 (11:35→17:33)
[2019-03-13] MEDS ORDERED: hydrOXYzine 25 MG TAB PO PRN (12:28)
[2019-03-13] MEDS ORDERED: Calcium Carbonate 500 MG ChewTAB PO SCH (12:30)
[2019-03-13] MEDS: Vancomycin HCl 1.75 GM in Sodium Chloride 0.9% 500 ML IVPB SCH ×2 (12:32→17:40)
[2019-03-13] MEDS: MEROPENEM 1 GM/50 ML 1 GM in Premix Bag 1 BAG IVPB SCH ×3 (12:32→22:24)
[2019-03-13] MEDS: Ibuprofen 800 MG TAB PO SCH ×2 (12:34→15:47)
[2019-03-13] MEDS: Morphine 2 MG/ML SYRINGE SLOW IVP PRN ×2 (13:53→20:21)
--- NOTE | 2019-03-13 14:19 | PRG ---
DATE OF SERVICE: 03/13/2019 SUBJECTIVE: Mr. Goodson is resting in his bed. He has no complaints. He has a dressing in place on his right lower leg. He is currently undergoing maggot therapy, and that was placed yesterday. This is scheduled to be changed tomorrow. OBJECTIVE: VITAL SIGNS: He is afebrile. Vital signs are normal except he is hypertensive at 170/100. EXTREMITIES: Dressing is intact on the right lower leg. LABORATORY DATA: New labs are not resulted if any are done. ASSESSMENT: The patient is stable with a huge open wound on the lateral aspect of his right lower leg. We will change his dressing tomorrow when his maggots are removed. I would anticipate that he would be able to be discharged home shortly thereafter to continue outpatient wound care. 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 He understands what I have told him, although it is not obvious what his plans are. Job ID: [id number]
[2019-03-13] MEDS: Ibuprofen 600 MG TAB PO SCH (16:18)
[2019-03-13] MEDS: hydrALAZINE 20 MG/ML VIAL SLOW IVP PRN (17:32)
[2019-03-13] MEDS: Lactated Ringer's 1,000 ML IV SCH (17:38)
[2019-03-13] MEDS: Cyclobenzaprine 10 MG TAB PO PRN (18:34)
[2019-03-13 19:00] LABS: BUN (Urea Nitrogen) 23 mg/dL (8.9-20.6); Calc. Creatinine Clearance 183 mL/min (70-130); Calcium 9.4 mg/dL (7.8-10.44); Chloride 89 mmol/L (98-107); Estimated GFR-MDRD Greater than 90; Glucose 120 mg/dL (70-105); Potassium 3.9 mmol/L (3.5-5.1); Sodium 135 mmol/L (136-145)
[2019-03-13 19:05] LABS: Hemoglobin 11.3 g/dL (14.0-18.0); Mean Corpuscular HGB CONC 30.8 g/dL (32.0-36.0); Mean Corpuscular Hemoglobin 25.6 pg (27.0-31.0); Mean Corpuscular Volume 83.3 fL (78.0-98.0); Mean Platelet Volume 7.5 fL (7.4-10.4); Platelet Count 556 thou/uL (130-400); RBC Distribution Width 15.9 % (11.5-14.5); Red Blood Cell (RBC) Count 4.42 mill/uL (4.70-6.10); White Blood Cell (WBC) Count 15.5 thou/uL (4.8-10.8)
[2019-03-13 19:09] LABS: Band 3 % (5-11); Eosinophils 1 % (0-10); Hypochromia SLIGHT = 6-15 cells (100X) (0-5/hpf); Lymphocytes 10 % (21-51); MDiff Complete? YES; Monocytes 5 % (0-10); Myelocyte 1 % (0-0); Neutrophil 80 % (42-75); Polychromasia SLIGHT = 2-3 cells (100X) (0-2/hpf)
[2019-03-13] MEDS ORDERED: Famotidine 20 MG TAB PO SCH (21:00)
[2019-03-13] MEDS: Nicotine 14 MG PATCH TD SCH (22:24)
[2019-03-14] MEDS: Ibuprofen 600 MG TAB PO SCH ×4 (00:04→23:24)
[2019-03-14] MEDS: traMADol HCl 50 MG TAB PO SCH ×5 (00:04→23:24)
[2019-03-14] MEDS: Acetaminophen 325 MG TAB PO SCH ×6 (00:04→20:03)
[2019-03-14] MEDS: traMADol HCl 50 MG TAB PO PRN ×2 (00:05→06:13)
[2019-03-14] MEDS: methylPREDNISolone Sod Succ 40 MG VIAL IVP SCH ×4 (00:06→17:38)
[2019-03-14] MEDS: Morphine 2 MG/ML SYRINGE SLOW IVP PRN (03:42)
[2019-03-14] MEDS: Calcium Carbonate 500 MG ChewTAB PO PRN ×2 (04:36→23:31)
[2019-03-14 05:45] LABS: Hemoglobin 11.5 g/dL (14.0-18.0); Mean Corpuscular HGB CONC 31.2 g/dL (32.0-36.0); Mean Corpuscular Hemoglobin 25.9 pg (27.0-31.0); Mean Corpuscular Volume 82.8 fL (78.0-98.0); Mean Platelet Volume 7.5 fL (7.4-10.4); Platelet Count 515 thou/uL (130-400); RBC Distribution Width 15.7 % (11.5-14.5); Red Blood Cell (RBC) Count 4.45 mill/uL (4.70-6.10); White Blood Cell (WBC) Count 17.6 thou/uL (4.8-10.8)
[2019-03-14 05:57] LABS: Band 2 % (5-11); Lymphocytes 7 % (21-51); MDiff Complete? YES; Monocytes 3 % (0-10); Neutrophil 84 % (42-75); Platelet Morphology Comment Appears Increased; Polychromasia SLIGHT = 2-3 cells (100X) (0-2/hpf); Reactive Lymphocytes 4 % (0-10)
[2019-03-14 06:10] LABS: Anion Gap 13 mmol/L (10-20); BUN (Urea Nitrogen) 23 mg/dL (8.9-20.6); Calc. Creatinine Clearance 188 mL/min (70-130); Calcium 9.4 mg/dL (7.8-10.44); Carbon Dioxide 34 mmol/L (22-29); Chloride 92 mmol/L (98-107); Estimated GFR-MDRD Greater than 90; Glucose 112 mg/dL (70-105); Potassium 4.1 mmol/L (3.5-5.1); Sodium 135 mmol/L (136-145)
[2019-03-14] MEDS: MEROPENEM 1 GM/50 ML 1 GM in Premix Bag 1 BAG IVPB SCH ×3 (06:12→23:24)
[2019-03-14] MEDS: Vancomycin HCl 1.75 GM in Sodium Chloride 0.9% 500 ML IVPB SCH ×2 (06:14→17:40)
--- NOTE | 2019-03-14 06:55 | PDOC.FM ---
- Subjective Subjective: NAEO. Patient resting comfortably in bed. States his pain is improved in his RLE as compared to yesterday. Able to move toes and foot better. Has no complaints. Wishes to go home today if possible. - Objective MAR Reviewed: Yes Vital Signs & Weight: Vital Signs (12 hours) Temp Pulse Resp BP Pulse Ox 03/14/19 03:52 98 F 70 16 177/113 H 96 03/14/19 02:35 70 16 94 L 03/13/19 23:52 98.2 F 69 18 142/88 H 93 L 03/13/19 22:29 68 16 03/13/19 19:55 98.2 F 77 16 133/81 92 L 03/13/19 19:06 80 16 Weight Admit Weight 97.976 kg Weight 97.976 kg Most Recent Monitor Data Heart Rate from ECG 96 NIBP 168/109 NIBP BP-Mean 128 Respiration from ECG 18 SpO2 98 I&O: 03/12/19 03/13/19 03/14/19 06:59 06:59 06:59 Intake Total 4360 4925 Output Total 4300 5700 Balance 60 -775 Result Diagrams: 03/14/19 05:16 03/14/19 05:16 Phys Exam - Physical Examination Constitutional: NAD HEENT: PERRLA, moist MMs, sclera anicteric Neck: supple, full ROM Respiratory: clear to auscultation bilateral Cardiovascular: RRR, no significant murmur, no rub Gastrointestinal: soft, non-tender, no distention, positive bowel sounds Musculoskeletal: pulses present much improved appearance of b/l feed; shabnam wrap on RLE; gauze over LLfoot all dressing are clean/dry/intact Neurological: non-focal, moves all 4 limbs Psychiatric: normal affect, A&O x 3 Skin: normal turgor, cap refill <2 seconds Dx/Plan (1) Alcohol abuse Code(s): F10.10 - ALCOHOL ABUSE, UNCOMPLICATED Status: Acute (2) History of DVT (deep vein thrombosis) Code(s): Z86.718 - PERSONAL HISTORY OF OTHER VENOUS THROMBOSIS AND EMBOLISM Status: Acute (3) PVD (peripheral vascular disease) Code(s): I73.9 - PERIPHERAL VASCULAR DISEASE, UNSPECIFIED Status: Acute (4) Gangrene of lower extremity Code(s): I96 - GANGRENE, NOT ELSEWHERE CLASSIFIED Status: Acute (5) Hypertension Code(s): I10 - ESSENTIAL (PRIMARY) HYPERTENSION Status: Acute (6) Sepsis due to skin infection Code(s): L03.90 - CELLULITIS, UNSPECIFIED; A41.9 - SEPSIS, UNSPECIFIED ORGANISM Status: Acute - Plan Plan: #Ischemic right lower extremity with necrotic skin changes s/p debridement on 03/[address] Flores. Debridement 03/08 with Mark again. - CV surg on the case, appreciate recs. - Maggot therapy 03/13-03/14 - On vanc & meropenem; prelim cx showing gram neg manjeet, presumptive pseudomonas, staph aureas. Can likely de-escalate abx to oral. Blood cx NGTD. Pharmacy to help dose vancomycin. - Pain controlled with tylenol, ibuprofen, tramadol and morphine #Sepsis 2/ above, resolved - see above #Submental lymphadenopathy noted on previous exam - Neck CT showing enlargement of submandibular glands and tonsils, cervical adenopathy. Patient can follow up with ENT outpatient to have evaluated. #Anemia Likely ACD component and iron deficiency - Hgb stable - Iron studies: low iron, normal ferritin, low transferrin, % saturation and TIBC. Will start on iron daily. #PVD see above - advised to stop smoking or would likely be a bilateral amputee within the year. #HTN - Will start losartan/HCTZ to try to get better BP control. Continue coreg. Amlodipine added to regimen - may take 5-7 days to take full affect. PRN hydralazine and labetalol. Can consider clonidine patch to better control BPs as they have still been elevated. #likely LUIS - continue Bipap at night #Tobacco abuse - Counseled on cessation. Nicotine patch PRN. #Alcohol abuse - ASE protocol CODE: Full DVT ppx: Lovenox GI ppx: pepcid PCP: none Dispo: > 2 midnights, pending clinical course and specialist recs. Discussed with Dr. Gaxiola. Addendum - Attending - Attending Attestation Date/Time: 03/14/19 8734 I personally evaluated the patient and discussed the management with Dr. Granda I agree with the History, Examination, Assessment and Plan documented above with any addition or exceptions noted below. Discussed reason to continue to stay patient motivated to leave hospital and return to work discuss the poor fci consequences of this at length. BP remains refractory and needs W/u secondary HTN. CM to look into rehab options however patient seems committed to leaving soon. Wound to be looked at later today by Wound and Surgery continue IV antibiotic and transition po soon.
[2019-03-14] MEDS ORDERED: Amlodipine 5 MG TAB PO SCH (09:00)
[2019-03-14] MEDS: Ferrous Sulfate 325 MG TAB PO SCH ×2 (09:19→17:39)
[2019-03-14] MEDS: Losartan/Hydrochlorothiazide 100 mg/25 mg Tablet PO SCH (09:20)
[2019-03-14] MEDS: Thiamine 100 MG TAB PO SCH (09:20)
[2019-03-14] MEDS: Folic Acid 1 MG TAB PO SCH (09:20)
[2019-03-14] MEDS: Amlodipine 10 MG TAB PO SCH (09:20)
[2019-03-14] MEDS: Senokot S 8.6-50 MG TAB PO SCH ×2 (09:20→20:02)
[2019-03-14] MEDS: Magnesium Oxide 400 MG TAB PO SCH (09:20)
[2019-03-14] MEDS: Multivitamin W/ Minerals 1 TAB PO SCH (09:20)
[2019-03-14] MEDS: Tamsulosin HCl 0.4 MG CAP PO SCH (09:21)
[2019-03-14] MEDS: Carvedilol 25 MG TAB PO SCH ×2 (09:21→20:02)
[2019-03-14] MEDS: Polyethylene Glycol 3350 17 GM Packet PO SCH (09:21)
[2019-03-14] MEDS: Labetalol HCl 100 MG/20 ML VIAL SLOW IVP PRN (09:22)
[2019-03-14] MEDS: Morphine 4 MG/ML VIAL SLOW IVP PRN (11:12)
--- NOTE | 2019-03-14 15:24 | PRG ---
DATE OF SERVICE: 03/14/2019 SUBJECTIVE: Mr. Goodson was examined today with the Wound Care Team. He has no complaints except during dressing change time and he still complains bitterly of pain in his right leg with dressings. Today, his maggot therapy was discontinued. When the dressing was taken down, the maggots, which had been tiny when they were placed were now large having increased in size, probably tenfold. The underlying wound appears to be largely viable. There are exposed tendons. They will still need to be addressed. Unfortunately, his right foot now appears to be more mottled and cold. This may be reflecting the clinical impression that I had when I first saw him, but he had no pulses into his foot. He has already been evaluated by vascular surgeon, is not felt to be a candidate for revascularization due to the enormity of the open wound. He remains afebrile. He is still somewhat hypertensive and was 178/119 this morning. 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 LABORATORY DATA: His white blood cell count has gone up to 17.6 today. Hemoglobin stable at 11.5. Electrolytes still show abnormality with low levels of sodium and chloride. BUN and creatinine were stable. ASSESSMENT AND PLAN: He is stable, 8 days following incision, drainage and wide debridement of the necrotizing soft tissue infection of the right leg. While it certainly made progress and most of the nonviable necrotic tissue was now gone, it is still a huge open wound that will require extensive care for this to be able to heal. I am very concerned about the clinical appearance of his foot. If this becomes ischemic (which it was not at initial presentation), then he will certainly require above knee amputation. I will reexamine him tomorrow in regard to this. If it is stable and/or improving, then wound care can be provided to leg and he can be discharged home to continue with outpatient wound care. I have again extensively cautioned him regarding the importance of complete smoking cessation and followup regarding wound care, assuming that he is discharged at some point. Job ID: [id number]
[2019-03-14 17:41] LABS: Vancomycin, Trough 21.3 ug/mL
--- NOTE | 2019-03-14 18:05 | OP ---
DATE OF PROCEDURE: 03/11/2019 PREOPERATIVE DIAGNOSIS: Open wound, right leg. POSTOPERATIVE DIAGNOSIS: Open wound, right leg. PROCEDURE PERFORMED: Debridement of right leg for the skin, subcutaneous tissue, muscle, and tendon. INDICATIONS FOR PROCEDURE: The patient is a 48-year-old male, vasculopath with active smoking, whom I met in the operating room. I was asked to assist in debridement. He has a large necrotic wound of his right leg. DESCRIPTION OF PROCEDURE: After induction of adequate anesthesia, the patient was prepped and draped in the usual sterile fashion in supine position. All the nonviable skin, subcutaneous tissue, and tendon were excised. Anything that looked possibly viable was left. The Trauma Service is going to try larval therapy and anticipates probable further debridement and possible amputation. The patient tolerated the procedure well. Job ID: [id number]
[2019-03-14] MEDS: Nicotine 14 MG PATCH TD SCH (23:25)
[2019-03-15] MEDS: Acetaminophen 325 MG TAB PO SCH ×4 (00:43→12:34)
[2019-03-15] MEDS: Morphine 2 MG/ML SYRINGE SLOW IVP PRN ×2 (03:41→12:34)
[2019-03-15] MEDS: traMADol HCl 50 MG TAB PO SCH ×2 (05:05→11:47)
[2019-03-15] MEDS: MEROPENEM 1 GM/50 ML 1 GM in Premix Bag 1 BAG IVPB SCH ×2 (05:06→14:34)
[2019-03-15] MEDS ORDERED: Vancomycin 1.5 GRAM/300 ML BAG 1.5 GM in Premix Bag 1 BAG IVPB SCH (06:00)
--- NOTE | 2019-03-15 06:31 | PDOC.FM ---
- Subjective Subjective: NAEO. Patient resting comfortably in bed. States pain is much improved. Only has pain during dressing changes. Denies pain in foot. States that he has been ambulating some with shoe on. Patient states he feels ready to go home. Denies numbness/tingling in right foot. Denies fever/chills. - Objective MAR Reviewed: Yes Vital Signs & Weight: Vital Signs (12 hours) Temp Pulse Resp BP BP Pulse Ox 03/15/19 03:39 98.2 F 75 16 160/97 H 95 03/15/19 01:00 97 03/14/19 23:52 98.2 F 77 16 146/90 H 96 03/14/19 20:07 98.1 F 82 16 163/92 H 95 Weight Admit Weight 97.976 kg Weight 97.976 kg Most Recent Monitor Data Heart Rate from ECG 96 NIBP 168/109 NIBP BP-Mean 128 Respiration from ECG 18 SpO2 98 I&O: 03/13/19 03/14/19 03/15/19 06:59 06:59 06:59 Intake Total 4925 3410 Output Total 5700 4525 Balance -655 -1214 Result Diagrams: 03/15/19 06:38 03/15/19 06:38 Phys Exam - Physical Examination Constitutional: NAD HEENT: PERRLA, moist MMs, sclera anicteric Neck: supple, full ROM Respiratory: no wheezing, no rales, no rhonchi, clear to auscultation bilateral Cardiovascular: RRR, no significant murmur, no rub Gastrointestinal: soft, non-tender, no distention, positive bowel sounds gauze wrapping on RLE - cl/dr/in; right foot - mildly dusky this improved after patient elevated leg Neurological: non-focal, normal sensation, moves all 4 limbs able to wiggle toes, sensation intact; unable to palpate a good pedal pulse Psychiatric: normal affect, A&O x 3 Skin: no rash, normal turgor, cap refill <2 seconds Dx/Plan (1) Alcohol abuse Code(s): F10.10 - ALCOHOL ABUSE, UNCOMPLICATED Status: Acute (2) History of DVT (deep vein thrombosis) Code(s): Z86.718 - PERSONAL HISTORY OF OTHER VENOUS THROMBOSIS AND EMBOLISM Status: Acute (3) PVD (peripheral vascular disease) Code(s): I73.9 - PERIPHERAL VASCULAR DISEASE, UNSPECIFIED Status: Acute (4) Gangrene of lower extremity Code(s): I96 - GANGRENE, NOT ELSEWHERE CLASSIFIED Status: Acute (5) Hypertension Code(s): I10 - ESSENTIAL (PRIMARY) HYPERTENSION Status: Acute (6) Sepsis due to skin infection Code(s): L03.90 - CELLULITIS, UNSPECIFIED; A41.9 - SEPSIS, UNSPECIFIED ORGANISM Status: Acute - Plan Plan: #Ischemic right lower extremity with necrotic skin changes POD 9 from I&D and debridement with Dr. Flores. - Gen surg consulted, appreciate recs. Maggot therapy 03/13-03/14. Underlying wound viable. Large wound. Per CV surg, not a candidate for revascularization. - On vanc & meropenem; prelim cx showing gram neg manjeet, presumptive pseudomonas, staph aureas. Can de-escalate to oral abx today. Blood cx NGTD. - Pain controlled with tylenol, ibuprofen, tramadol and morphine. Will try to de -escalate morphine in order to get patient on a regimen he can go home with. #Sepsis 2/2 above, resolved - see above #Submental lymphadenopathy noted on previous exam - Neck CT showing enlargement of submandibular glands and tonsils, cervical adenopathy. Patient can follow up with ENT outpatient to have evaluated. #Anemia Likely ACD component and iron deficiency - Hgb stable - Iron studies: low iron, normal ferritin, low transferrin, % saturation and TIBC. Iron daily. #PVD see above - advised to stop smoking or would likely be a bilateral amputee within the year. #HTN - On losartan/HCTZ and coreg. Amlodipine added to regimen - may take 5-7 days to take full affect. Clonidine patch added for better control. Most recent BP at goal. PRN hydralazine and labetalol. #likely LUIS - continue Bipap at night #Tobacco abuse - Again counseled on cessation. Nicotine patch. #Alcohol abuse - ASE protocol CODE: Full DVT ppx: Lovenox GI ppx: pepcid PCP: none Dispo: > 2 midnights, pending clinical course and specialist recs. Discussed with Dr. Gaxiola. Addendum - Attending - Attending Attestation Date/Time: 03/16/19 5393 I personally evaluated the patient and discussed the management with Dr. Granda I agree with the History, Examination, Assessment and Plan documented above with any addition or exceptions noted below. Patient anticipating d/c and close outpatient f/u he is aware if leg ischemic escalates he likely would require Amputation. Patient admonished to discontinue tobacco which he appears committed to at present.
[2019-03-15 06:58] LABS: Hemoglobin 11.3 g/dL (14.0-18.0); Mean Corpuscular HGB CONC 31.8 g/dL (32.0-36.0); Mean Corpuscular Volume 81.7 fL (78.0-98.0); Mean Platelet Volume 7.7 fL (7.4-10.4); Platelet Count 462 thou/uL (130-400); RBC Distribution Width 15.9 % (11.5-14.5); Red Blood Cell (RBC) Count 4.34 mill/uL (4.70-6.10); White Blood Cell (WBC) Count 14.7 thou/uL (4.8-10.8)
[2019-03-15 07:05] LABS: Anion Gap 11 mmol/L (10-20); BUN (Urea Nitrogen) 26 mg/dL (8.9-20.6); Calc. Creatinine Clearance 188 mL/min (70-130); Calcium 8.8 mg/dL (7.8-10.44); Carbon Dioxide 32 mmol/L (22-29); Chloride 96 mmol/L (98-107); Estimated GFR-MDRD Greater than 90; Glucose 95 mg/dL (70-105); Potassium 3.8 mmol/L (3.5-5.1); Sodium 135 mmol/L (136-145)
[2019-03-15 07:30] LABS: Lymphocytes 23 % (21-51); MDiff Complete? YES; Monocytes 5 % (0-10); Neutrophil 70 % (42-75); Platelet Morphology Comment Appears Increased; RBC Morphology Normal; Reactive Lymphocytes 2 % (0-10)
--- NOTE | 2019-03-15 08:26 | PRG ---
DATE OF SERVICE: 03/14/2019 Tomer Goodson continues to remain in the hospital. He is receiving wound care. He said he was shaking when I entered the room this morning, because he needed his morphine. He still remains on IV antimicrobial therapy. He is still on IV steroids. On exam, he is not wheezing. He has been switched to p.r.n. nebulizer treatments. His steroids can be discontinued at this point as they will just slow down his healing. Hopefully, he can stay away from cigarettes. I have explained to him continuation of smoking will lead to amputation of the limb. I have also explained that if he loses weight, complications related to that. I suspect he has sleep apnea. I would not be surprised if he does not have some early chronic obstructive pulmonary disease. He is currently not wheezing, so we will simplify medications. Still on antihypertensives. He has a p.r.n. for Valium. He is on Motrin every 8 hours. His antihypertensives might be simplified/consolidated while he is in the hospital. I have a feeling that he is not going to be extremely compliant once he leaves the hospital. We will sign off. Please consult Job ID: [id number]
[2019-03-15] MEDS: Ferrous Sulfate 325 MG TAB PO SCH (08:56)
[2019-03-15] MEDS: Senokot S 8.6-50 MG TAB PO SCH (08:56)
[2019-03-15] MEDS: Magnesium Oxide 400 MG TAB PO SCH (08:56)
[2019-03-15] MEDS: Carvedilol 25 MG TAB PO SCH (08:56)
[2019-03-15] MEDS: Multivitamin W/ Minerals 1 TAB PO SCH (08:56)
[2019-03-15] MEDS: Losartan/Hydrochlorothiazide 100 mg/25 mg Tablet PO SCH (08:57)
[2019-03-15] MEDS: Amlodipine 10 MG TAB PO SCH (08:57)
[2019-03-15] MEDS: Polyethylene Glycol 3350 17 GM Packet PO SCH (08:58)
[2019-03-15] MEDS: Folic Acid 1 MG TAB PO SCH (08:58)
[2019-03-15] MEDS: Tamsulosin HCl 0.4 MG CAP PO SCH (08:58)
[2019-03-15] MEDS: Thiamine 100 MG TAB PO SCH (08:58)
[2019-03-15] MEDS: Ibuprofen 600 MG TAB PO SCH (09:00)
--- NOTE | 2019-03-15 09:14 | PRG ---
DATE OF SERVICE: 03/15/2019 SUBJECTIVE: Mr. Goodson remains in the hospital on the surgical floor. He is postoperative day #9 from the aggressive debridement of his huge right lower extremity ischemic/gangrenous wound. He has undergone serial debridements, wound care, and has completed a 48-hour course of maggot therapy. His wound appeared much chicken cleaner yesterday, but is still a large open wound. There was no foul smell associated with this. He has no complaints. Yesterday, I had concerns regarding ischemic appearance of his right foot. It clearly looks better today. PHYSICAL EXAMINATION: VITAL SIGNS: He is afebrile. Vital signs normal. He has still had intermittent episodes of hypertension. Dressing is intact on right lower leg. LABORATORY DATA: White blood cell counts little elevated at 14.7, hemoglobin is 11.3. His chemistry panel shows mild electrolyte abnormalities. ASSESSMENT: The patient with large ischemic wound of right lower leg. It is improved with wound care. He will require ongoing fairly intensive wound care. I think he is stable for discharge as this will become more of a chronic process and there is little else to do acutely. He should have outpatient wound care at least 3 times per week. He has been on intravenous meropenem since his admission. He no longer requires this. I believe discharge on a course of an oral antibiotic such as Levaquin for one week course is appropriate. I would like to see him back in my office in 1 week. He has been cautioned regarding the importance of complete smoking cessation for the rest of his life as well as the importance of following up with outpatient wound care. 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 He understands and tentatively agrees to follow my directions. I will see him back in 1 week. He has been admitted and cared for by the family practice service and discharge will be per their service. He will clearly require antihypertensive medication as well as short term of oral antibiotics. Job ID: [id number]
[2019-03-15 13:13] VITALS: BP 121/78; TEMP 98.4
--- NOTE | 2019-03-18 10:46 | DIS ---
DATE OF ADMISSION: 03/06/2019 DATE OF DISCHARGE: 03/15/2019 RESIDENT: Gladys Granda MD ADMITTING ATTENDING: Patrice Rich MD DISCHARGE ATTENDING: Aramis Gaxiola MD. CONSULTS: General Surgery, Cardiovascular surgery, Pulmonology, Wound Care, Case Management. PROCEDURES: 1. On 03/07/2019, debridement of right lower extremity with Dr. Flores. 2. On 03/07/2019, thyroid ultrasound showing no focal thyroid lesion. 3. On 03/07/2019, aorta with runoff CTA showing stenosis involving the left superficial femoral artery, occlusion of the right superficial femoral artery at its origin with a stent in the right superficial femoral artery which is occluded, patchy infiltrate in the right mid lung and bibasilar atelectasis. 4. Soft-tissue neck CT on 03/07/2019, showing both submandibular glands enlarged and heterogeneous with surrounding inflammatory change and edema, subcutaneous edema in the neck bilaterally below the mandible. Nonspecific cervical adenopathy most prominent at level 2, lymphoid prominence with enlargement of the pharyngeal tonsils and palatine tonsils, at basement of the left piriformis sinus. DISCHARGE MEDICATIONS: 1. Tylenol 650 mg oral every 4 hours. 2. Norvasc 10 mg oral daily. 3. Tums 1000 mg oral daily as needed. 4. Catapres patch 0.1 mg transdermal every week. 5. Flexeril 10 mg oral 3 times daily as needed. 6. Ferrous sulfate 325 mg oral twice daily with meals. 7. Folic acid 1 mg oral daily. 8. Atarax 50 mg oral every 6 hours as needed. 9. Ibuprofen 600 mg oral every 8 hours. 10. Losartan hydrochlorothiazide 1 tablet oral daily. 11. Magnesium oxide 400 mg oral daily. 12. Nicotine patch 14 mg transdermal every 24 hours. 13. Tamsulosin 0.4 mg oral daily. 14. Ultram 50 mg oral every 6 hours. 15. Levaquin 750 mg oral daily. 16. Coreg 25 mg oral twice daily. DISCONTINUED MEDICATIONS: Chlorthalidone 25 mg oral daily. PRIMARY DIAGNOSES: 1. Ischemic right lower extremity with necrotic skin changes. 2. Sepsis, resolved. 3. Submental lymphadenopathy. 4. Anemia. SECONDARY DIAGNOSES: 1. Peripheral vascular disease 2. hypertension, 3. likely obstructive sleep apnea 4.Tobacco use 5. alcohol use HISTORY OF PRESENT ILLNESS/HOSPITAL COURSE: This is a 48-year-old male who presented to the ED with worsening right lower extremity pain. 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 He is a poor historian, but did describe that he had had the wound on his right lower extremity since May of 2018 and that had significantly worsened over the last month and a half. He finally decided to come in due to significant increasing pain. He stated that in February of 2018, he had 3 blood clots in that leg that were surgically removed with stent placement. He said that he had a postoperative infection at that time and some skin had been removed. This was done in [place], [place]. In the ER, the patient was given 1 L normal saline, Zofran , morphine, and started on vancomycin and meropenem. The patient's vital signs were significant for BP of 186/109, pulse of 102, temperature of 99.2, and saturating 96% on 3 L of oxygen. His labs were significant for white count of 12.6. General Surgery, Dr. Flores was consulted for evaluation of the wound. The patient was admitted for treatment of the right leg necrotizing wound and taken to the medical floor. The patient was taken back to the OR by Dr. Flores for a debridement on 03/07. The patient ended up undergoing a maggot therapy from 03/13 to 03/14, and he tolerated this well. Per Dr. Flores, the wound looked much improved and there was viable tissue present. The patient had his antibiotics deescalated to oral Levaquin upon discharge. His pain was controlled with Tylenol, ibuprofen, and Ultram. The patient will need to follow up with Wound Care outpatient closely. He will follow up with Dr. Flores within one week. As for the patient's submental lymphadenopathy, he will need to follow up with ENT outpatient to evaluate for any type of cancer of the oropharynx or neck. The patient was started on several antihypertensive drugs throughout his hospitalization. They did improve, but then they did say that he will need to follow up closely with the PCP outpatient. He will also need to follow up outpatient with a sleep study to make sure that his LUIS is treated. The patient also had extensive discussions with multiple providers about cessation of smoking. The patient was sent home with a nicotine patch to help with his cessation of smoking. The patient understands that he needs to quit smoking and that if he is not able to do so, he may end up with bilateral amputation of his legs. DISPOSITION: Stable. DISCHARGE INSTRUCTIONS: 1. Location: Home. 2. Activity: Orthopedic limitations, putting limited weight on the left lower extremity. 3. Diet: Regular diet with Cesar supplementation. 4. Follow up with wound care within a few days. Follow up with Dr. Flores within one week and follow up with PCP, Dr. Gladys Granda within 7 days. Job ID: [id number] [facility]
[2019-03-19 15:11] LABS: Renin Activity 0.402 ng/mL/hr (0.167-5.380)
[2019-03-21] MEDS ORDERED: cloNIDine 0.1mg/24 Hour PATCH TD SCH (09:00)
== END 2019-03-15 16:50 | disposition home or self-care (01) | DRG 854 ==
LOC: ERS 18:26 → T4-B 22:18 → CCU 03-07 01:33 → SURG B 03-09 11:46
PROVIDERS: ADMIT Student in an Organized Health Care Education/Training Program; ATTEND Student in an Organized Health Care Education/Training Program
PROC: 0LBN0ZZ Excision of Right Lower Leg Tendon, Open Approach (ICD-10-PCS; principal; 2019-03-06)
PROC: 5A09357 Assistance with Respiratory Ventilation, Less than 24 Consecutive Hours, Continuous Positive Airway Pressure (ICD-10-PCS; 2019-03-07)
PROC: 0LBN0ZZ Excision of Right Lower Leg Tendon, Open Approach (ICD-10-PCS; 2019-03-11)
DX: A41.9 Sepsis, unspecified organism (principal); E87.3 Alkalosis; I96 Gangrene, not elsewhere classified; L03.115 Cellulitis of right lower limb; T82.898A Other specified complication of vascular prosthetic devices, implants and grafts, initial encounter; L97.815 Non-pressure chronic ulcer of other part of right lower leg with muscle involvement without evidence of necrosis; I10 Essential (primary) hypertension; F17.210 Nicotine dependence, cigarettes, uncomplicated; I16.0 Hypertensive urgency; D47.3 Essential (hemorrhagic) thrombocythemia; F10.10 Alcohol abuse, uncomplicated; I77.1 Stricture of artery; Y83.8 Other surgical procedures as the cause of abnormal reaction of the patient, or of later complication, without mention of misadventure at the time of the procedure; J44.9 Chronic obstructive pulmonary disease, unspecified; G47.33 Obstructive sleep apnea (adult) (pediatric); D50.9 Iron deficiency anemia, unspecified; D63.8 Anemia in other chronic diseases classified elsewhere; R59.0 Localized enlarged lymph nodes; Z91.19 Patient's noncompliance with other medical treatment and regimen; Z71.6 Tobacco abuse counseling; Z88.0 Allergy status to penicillin; Z86.718 Personal history of other venous thrombosis and embolism
CPT/HCPCS: 36415; 70491; 71045; 75635; 76536; 80048; 80053; 80202; 81003; 82088; 82728; 83036; 83540; 83550; 83605; 84145; 84244; 84439; 84443; 84466; 85025; 85652; 86140; 87040; 87070; 87077; 87186; 87205; 88304; 88305; 88331; 94640; 94660; 96365; 96375; 96376; J0360; J1885; J2001; J2185; J2250; J2270; J2405; J2704; J2920; J3010; J3370; J3411; J3475; J3490; J7050; J7620; Q0162; Q9967